=== PATIENT | female | born 1965 | race Caucasian/White ===

== ENCOUNTER 2022-03-13 07:38 | Outpatient (CLI) | payer MEDICAID, SELFPAY ==
--- OUTSIDE RECORDS SUMMARY | 2022-04-10 16:03 | XMS_ITS | Clinical Summary ---
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 CUTTING MACHINE OPERATOR Radicular pain; Pulmonary nodul e, right 03/29/2022 Travel 03/28/2022 Telephone Anamika Amin, Refill Re quest (ATIVAN BAND CUTTING MACHINE OPERATOR ORAL TAB 1MG) 03/27/2022 Telephone Anamika Amin, Form BAND CUTTING MACHINE OPERATOR 03/21/2022 Office Visit Anamika Amin Medicatio n Management BAND CUTTING MACHINE OPERATOR ([facility] ) 03/21/2022 Travel 03/11/2022 Office Visit Anamika Amin Musculosk eletal Problem 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 OPERATOR (Right shoulder ; back pain) 03/11/2022 Telephone Anamika Amin FYI BAND CUTTING MACHINE OPERATOR 03/11/2022 Telephone Phuong Adams DO 03/11/2022 Travel 03/04/2022 Hospital Encounter Nara Parker DO Chronic bilateral low back Hadro, Lopez Gambino PT pain with bilateral sciatica (Prima ry Dx) Discharge Summary - Shellie Bonner S, PT - 03/04/2022 7:00 AM CDT [facility] Physical Therapy Out Patient Discharge Note Patient Name: Michelle Killian Date of Service: 03/04/2022 Start of Service: 12/18/21 Visit Count: Visit Count: 3 PT MEDICAL/TREATMENT DIAGNOS IS Osteoarthritis, localized, s houlder, right ICD-10 M19.011 Referring MD/Provider: Arend t [...] ea leg?Hook Lying Ball rol up ? [place]? HEP [id number]? Home Exercise Program: very basic LB mobility ex Pt was educated in and under stands their [facility]. 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 - [...] k again Friday 01/19) 01/17/2022 Telephone Nara Parker, Results 01/17/2022 Travel 01/16/2022 Telephone Anamika Amin [...] Family History Medical History Relation Name Comments [facility] Brother Mike Heart Disease Father age 57 MD Cancer-breast Maternal Aunt Cancer-breast Maternal Grandmother Hypertension Mother Other Mother brain aneurysm Cancer-breast Paternal Aunt [facility] Sister 1 Sharon [facility] Sister 2 Juliette Relation Name [...] in contact with No / Unsu re 04/05/2022 9:43 AM CDT someone who was confirmed or suspected to have Coronavirus/COVID-19? Obstetrics History Para Term AB IAB SAB Ectopic Multiple Living Live Births 3 2 2 1 2 2 Date Outcome GA Total Labor/2nd/3rd Weight Sex Delivery Anes PTL Soraya A 1 A5 Name Clin Labor 1984 Term Vag-Force Sophie ps ng Delivery Location: [place], [place] 1985 AB Delivery Location: [place], [place] 1988 Term Living Delivery Location: [place] Last Filed Vital Signs Vital Sign Reading Time Taken Comments Blood Pressure 118/52 04/05/2022 10:21 AM CDT Pulse 76 04/05/2022 10:21 AM CDT Temperature 36.9 ??C (98.5 ??F) 01/15/2022 4:34 PM CDT Respiratory Rate 14 04/05/2022 10:21 AM CDT Oxygen Saturation 97% 02/04/2022 3:25 PM CDT Inhaled Oxygen Concentration - - Weight 124.3 kg (274 lb) 04/05/2022 10:21 AM CDT Height 165.1 cm (5' 5) 04/05/2022 10:21 AM CDT Body Mass Index 45.6 04/05/2022 10:21 AM CDT Plan of Treatment Upcoming Encounters Date Type Specialty Care Team Description 04/15/2022 Hospital Encounter Stacy Adams, DO [address] [place], [place] [address] (Wo rk) 04/15/2022 Anesthesia Event Schema, Cliff Smith , HOGSHEAD STOCK CLERK [address] [facility], [place] [address] (Wo rk) 04/15/2022 Surgery Jose Roberto Adams, DO COLONOSCOPY [address] [place], [place] [address] (Wo rk) 04/15/2022 Procedure Only Jose Roberto Adams, DO [address] [place], [place] [address] (Wo rk) 04/19/2022 Office Visit Babita Amin, JAIDA [address] [facility], [place] [address] (Wo rk) 04/19/2022 Appointment 04/26/2022 Office Visit Delaney Grimaldo, OD [address] [facility], [place] [address] (Wo rk) 04/26/2022 Office Visit Mir Beltran PA [address] [facility] [address] [place] [address] (Wo rk) Scheduled Procedures Name [...] (ht and wt on same day) for 04/05/2023 04/05/2022, 02/21, age 18+ 02/04/2022, Additional history exists Tetanus booster 09/23/2024 09/23/2014, 09/02/2014, 05/01/2005, Additional history exists Pap test for age 21-65 11/26/2026 11/26/2021, 11/26/2021 Lipids for age 45-75 03/11/2027 03/11/2022, 11/26/2021, 08/02/2021, Additional history exists Hepatitis B series for Diabetes Completed 05/25/1992, 07/1991, 11/12/1991 Tdap Completed 09/02/2014 Procedures Procedure Name Priority Date/Time Associated Comments Diagnosis MR ANGIO HEAD BRAIN Routine 04/05/2022 12:00 AM FH: brain aneu rysm Results for this WO CDT procedure are i n the results section. MR SPINE LUMBAR WO Routine 03/29/2022 9:32 [...] section. from Last 3 Months Results MR ANGIO HEAD BRAIN WO (04/05/2022 12:00 AM CDT) Anatomical Region Laterality Modality HEAD, BRAIN Magnetic Resonance Narrative This result has an attachment that is no t available. Anamika Amin NP MR MR SPINE LUMBAR WO (03/29/2022 9:32 AM [...] s are released immediately into your [facility] record. ??You may view this [...] osseous lesions. Normal conus terminates at L1. [id number]: No spinal canal or neural foraminal narrowing. [...] If you have questions, please contact yo ur health care provider. INDICATION: Low back pain. Radicular pain. COMPARISON: None. TECHNIQUE: Sagittal T1, T2, and STIR sequences. Axi al T1 and T2 weighted sequences. FINDINGS: Normal vertebral body alignment. No frac tures. No vertebral body loss of height. No ligamentous injury. No suspicious osseous lesions. Normal conus terminates at L1. [id number]: No spinal canal or neural foraminal narrowing. [...] 10: 56:22 AM (Electronically Signed) Anamika Amin NP MR MR SHOULDER RIGHT WO (03/29/2022 9:31 [...] report s are released immediately into your [facility] medical record. ??You may view this [...] questions, please contact yo health care provider. HISTORY: Chronic right shoulder [...] note that all CT [facility] at [facility] use dose modulation, iterative reconstruction, and/or weight-based dosing when appropriate to reduce radiation dose to as low as reasonably achievable. Dictated by Shellie Pringle MD @ 03/29/2022 9:32: 47 AM (Electronically Signed) Narrative 03/29/2022 9:32 AM CDT For Patients: ??As a result of the Cures Act, medical imaging exams and procedure report s are released immediately into [facility] record. ??You may view this report [...] please contact yo health care provider. INDICATION: Right pulmonary nodule. [...] note that all CT scans at [facility] use dose modulation, iterative reconstruction, and/or weight-based dosing when appropriate to reduce radiation dose to as low as reasonably achievable. Dictated by Shellie Pringle MD @ 03/29/2022 9:32: 47 AM (Electronically Signed) Anamika Amin BAND CUTTING MACHINE OPERATOR CT (ABNORMAL) LIPID PANEL W REFLEX MEASURED LDL (03/11/2022 3:22 PM T) [facility] Method Time Signature CHOLESTEROL,TOTAL 167 100 - 199 03/11/2022 [place] mg/dL 4:04 PM [facility] TRIGLYCERIDES 234 (H) <150 03/11/2022 [place] mg/dL 4:04 PM [facility] HDL CHOLESTEROL 36 (L) >40 mg/dL 03/11/2022 [place] 4:04 PM [facility] NON-HDL 131 <145 03/11/2022 [place] CHOLESTEROL mg/dl 4:04 PM [facility] CHOL/HDL RATIO 4.64 (H) <4.50 03/11/2022 [place] 4:04 PM [facility] LDL CHOLESTEROL 84 <=130 03/11/2022 [place] mg/dL 4:04 PM [facility] VLDL CHOLESTEROL 47 (H) <=30 03/11/2022 [place] mg/dL 4:04 PM [facility] PROVIDER ORDERED RANDOM 03/11/2022 [place] STATUS 4:04 PM [facility] Specimen Anatomical Collection Method / Collection Time Recei alaina Time (Source) Location / Volume Laterality Blood BLOOD SPECIMEN / Venipuncture / 03/11/2022 3:22 2021 3:25 Unknown Unknown PM CDT PM CDT Anamika Amin NP CHEMISTRY Performing Organization Address City/[facility]/ZIP Code Phon e Number [facility]ORATORY [address] [place] [address] TSH (03/11/2022 3:22 PM CDT) athologist Signature TSH 0.91 0.35 - 4.94 03/13/2022 [facility] uIU/mL 2:54 PM CDT LABORATORY-CENTR AL LABORATORY Specimen Anatomical Collection Method / Collection Time Recei alaina Time (Source) Location / Volume Laterality Blood BLOOD SPECIMEN / Venipuncture / 03/11/2022 3:22 2021 3:25 Unknown Unknown PM CDT PM CDT Narrative [facility] LABORATORY-CENTRAL LABORAT ORY - 03/13/2022 2:54 PM CDT In Adults, TSH values between 5.00 and 10.00 uIU/ml do not necessarily indicate the presence of Hyp othyroidism. Correlation with clinical findings such as presence of goiter and/or Thyroperoxidase (TPO) Antibody ma y be helpful. For more information please refer to ROS 20 ; 291: 228-238. Anamika Amin NP CHEMISTRY Performing Organization Address City/[facility]/ZIP Code Phon e Number [facility] [address] [place] [address] LABORATORY-CENTRAL 2000 LABORATORY HEMOGLOBIN A1C MONITORING (POCT) (03/11/2022 3:22 PM CDT) athologist Signature HEMOGLOBIN A1C 6.0 <=6.4 % 03/11/2022 [facility] MONITORING 3:34 PM CDT [facility] Specimen Anatomical Collection Method / Collection Time Recei alaina Time (Source) Location / Volume Laterality Blood BLOOD SPECIMEN / Venipuncture / 03/11/2022 3:22 2021 3:25 Unknown Unknown PM CDT PM CDT Narrative [facility] - 022 3:34 PM CDT ? (<=6.9%) [...] Anamika Amin NP CHEMISTRY Performing Organization Address City/[facility]/ZIP Code Phon e Number [place] [id number] 21 PATH TISSUE EXAM (02/04/2022 4:43 PM CDT) Component Value Ref Test Analysis Performed At [facility] gist Range Method Time Signature Case Report Pathology Report ?Case: [id number] ? 02/06/2022 [facility] Authorizing Provider: ??Jessica Ham MD ?Collected: ? 02/04/2022 1643 ? 2:01 PM HEALTH Ordering Location: ? [facility] ?? Received: ?02/04/2022 1655 ? CDT [...] Clinical Lipoma 02/06/2022 [facility] Information 2:01 PM [facility] CDT LABORATORY-C [facility] LABORATORY Gross A) Received in formalin, lab [...] discrete foci of hemorrhage or necrosis identified. Credit Review Officer sections are submitted in 8 cassettes. 2:01 PM [facility] CDT LABORATORY-C 02/05/2022 [facility] LABORATORY Microscopic The final diagnosis is based on microscopic examination of appropriate sections of all specimens. 02/06/2022 [facility] Description 2:01 PM [facility] CDT LABORATORY-C Primarily in the subcutis is prominent fatty tissue showing no significant mitotic activity or atypia. In the context of a clinical mass this is compatible with a lipoma. The presence of ??green ink is confirmed on tissue sections. ENTRMT LABORATORY Additional 02/06/2022 [facility] Information Interpreted at [facility], Central Laboratory - [address] [address] 2:01 PM HEALTH CDT LABORATORY-C ENTRAL LABORATORY Specimen Anatomical Collection Method Collection Time Receive d Time (Source) Location / / Volume Laterality Other (Right Non-Blood / 02/04/2022 4:43 PM 4:55 Shoulder) Unknown CDT PM CDT Jessica Mcnally MD PATHOLOGY/CYTOLOGY Performing Organization Address City/State/ZIP Code Phon e Number [employer] [address] [place] [address] LABORATORY-CENTRAL 2000 LABORATORY XR SHOULDER 3 VIEWS [...] s are released immediately into your [facility] medical record. ??You may view this report [...] If you have questions, please contact [facility] health care provider. INDICATION: Strain of the [...] MD @ Jan 17 3:10PM (Electronically Signed) Nara Parker DO GENERAL IMAGING from Last 3 Months Insurance Payer Benefit Plan / Subscriber ID Effective Dates Phone Addre ss Type Group [employer] [place] [id number] 2021-Present [address] [place] [address] [employer] [id number] Through [address] [facility] [address] [address] [place]: [place] [address] (Home) [place] [id number] Michelle Killian Personal/Family Self [address] (Home) [place] [id number] Advance Directives Latest Code Status on File Code Status Date Activated Date Inactivated Comments Full Code 08/06/2021 8:55 PM 08/08/2021 8:46 PM Code Status Discussion: Reviewed Preferences Care Teams Programs Assistant Relationship Specialty Start Date End Date Anamika Amin NP PCP - General Family Practice 07/19/[address] [place] [address] [place] [address]
== END 2022-03-13 07:39 | disposition home or self-care (01) ==
LOC: AMB 04-10 16:02
PROVIDERS: PCP Nurse Practitioner Family; Visit Provider Family Medicine
DX: R06.09 Other forms of dyspnea (principal); R53.1 Weakness
CPT/HCPCS: A0425; A0427

== ENCOUNTER 2022-03-13 08:11 | Emergency (ER) | payer MEDICAID, SELFPAY ==
[2022-03-13] VITALS (8 sets, daily range): BP systolic 101–137; BP diastolic 41–65; PULSE 85–89; RESP 11–24; TEMP 36.2; O2SAT 91–99; BMI 48.9
--- NOTE | 2022-03-13 08:48 | ED.SOB ---
HPI - SOB/Dyspnea General Chief Complaint: Shortness of Breath/Dyspnea Stated Complaint: Shortness of Breath Time Seen by Provider: 03/13/22 08:26 History of Present Illness HPI Narrative: 56-year-old woman presenting to the emergency department with complaint of episode of shortness of breath. 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 She felt at severe tightening in her posterior neck musculature down into her back as well. And just felt like she could not get enough air. Further recollection does admit that she was may be hyperventilating. She does not describe peripheral symptoms. No loss of sensation. No cramping. Subsequently felt rather nauseated. Admittedly much better now though the tightness in her neck neck remains somewhat. Was in usual state of health at onset here. Did not feel a sense of palpitations or rapid heart rate with this episode. Underlying history of diabetes. Rather heavy smoking. History of COPD and asthma. She does note in the past, sounds more remote, was diagnosed with depression and anxiety and has had panic attacks but this did not feel like that. On exam I note that her abdomen is tender in various locations; she notes that this is chronic. No headache. No visual changes. History of back surgeries. Do inquire regarding family history. Her father from an [place] I believe at age 57. Says that father smoked but did not inhale and the last cigarette he had was the day of her wedding. Mother with ?2 brain aneurysmsI believe this is the reason for her . Sister is well with brain aneurysms. Michelle herself is not been screened but it has been discussed. Family history otherwise of breast cancer. Has had breast biopsy for what sounds like fibrocystic breast disease. She does note that can be tender in the left breast/chest area in particular. Related Data Home Medications Medication Instructions Recorded Confirmed amlodipine 10 mg tablet mg 03/13/22 gabapentin 100 mg capsule mg 03/13/22 hydrochlorothiazide 25 mg tablet mg 03/13/22 lisinopril 20 mg tablet mg 03/13/22 lorazepam 1 mg tablet mg 03/13/22 metformin 500 mg tablet mg 03/13/22 omeprazole 40 mg capsule,delayed mg 03/13/22 release Allergies Allergy/AdvReac Type Severity Reaction Status Date / Time No Known Drug Allergies Allergy Verified 03/13/22 08:18 Review of Systems Status of ROS: Reports: 10 or more systems reviewed and unremarkable except as noted in History and below [facility] Social History Smoking Status: Current every day smoker What tobacco products do you use: cigarettes Smoking packs per day: 1.5 Smoking cigarettes per day: 30.0 Years smoked: 42 Smoking pack-years: 63.00 Second hand tobacco smoke exposure: No How often do you have a drink containing alcohol: never How often do you have six or more drinks on one occasion: Never AUDIT-C Alcohol total score: 0 Non-prescribed substance use: denies use service: No Exam Narrative: Exam Narrative: Pleasant. Thoughtful. No distress. Breathing easily. Cranial nerves 2-12 intact. Moving all extremities without difficulty. She is well perfused peripherally. Equal pulses in the upper extremities. There is mild lower extremity dependent edema. Skin is warm and dry - not diaphoretic at this time. Mild follicular inflammation on the lower legs. Oropharynx is moist and hyperemic consistent with nicotine use. Full dentures. Back/lungs clear to auscultation. There is a more recent surgical scar at the right upper back consistent with cystic excision. She is rather sore to palpation of the trapezial and paracervical musculature. Neck though is supple. Abdomen is obese soft. Moderately tender in the left upper abdomen and into the right mid abdomen. Again she reports this is chronic. Cardiovascular with regular rate rhythm. Large chest makes this rather distant. Const: Vital Signs, click to edit/add: Vital Signs - 24 hr 03/13/22 08:20 03/13/22 09:00 03/13/22 09:00 Temperature 97.1 F L Pulse Rate [Right Pulse Oximeter] 86 87 Respiratory Rate 20 12 Blood Pressure [Ri ght Forearm] Blood Pressure [Ri ght Upper Arm] 101/49 L 112/65 Pulse Oximetry 97 96 99 Oxygen Delivery Me thod Room Air Room Air 03/13/22 08:30 03/13/22 09:30 03/13/22 12:00 Temperature Pulse Rate [Right Pulse Oximeter] 87 85 87 Respiratory Rate 11 L 14 16 Blood Pressure [Ri ght Forearm] 136/50 L Blood Pressure [Ri ght Upper Arm] 118/54 L 137/62 136/50 L Pulse Oximetry 95 95 98 Oxygen Delivery Ms thod Room Air Room Air Room Air 03/13/22 10:30 03/13/22 11:00 03/13/22 11:30 Temperature Pulse Rate [Right Pulse Oximeter] 85 89 85 Respiratory Rate 24 Blood Pressure [Ri ght Forearm] 114/41 L 112/50 L 104/49 L Blood Pressure [Ri ght Upper Arm] Pulse Oximetry 91 91 91 Oxygen Delivery Ms thod Room Air Room Air Documenting provider has reviewed patient's vital signs: yes Course Course Hospital Course: To be monitored on color television console monitor and oximetry. Initiating laboratory evaluation. Does not appear to need any interventions at this time. Initial EKG reviewed by me shows normal sinus rhythm rate of 87 without ischemic changes. Reevaluation(s) Reevaluation #1: generally well -- increasing back discomfort improved with positioning in hospital bed Vital Signs Vital signs: Initial Vital Signs Temperature 97.1 F L 03/13/22 08:20 Temperature Source Temporal Artery Scan 03/13/22 08:20 Pulse Rate 86 03/13/22 08:20 Respiratory Rate 20 03/13/22 08:20 Blood Pressure 101/49 L 03/13/22 08:20 Blood Pressure Mean 66 03/13/22 08:20 Blood Pressure Position Sitting 03/13/22 08:20 Pulse Oximetry 97 03/13/22 08:20 Oxygen Delivery Method 03/13/22 08:20 Vital Signs Temperature 97.1 F L 03/13/22 08:20 Pulse Rate 86 03/13/22 08:20 Respiratory Rate 20 03/13/22 08:20 Blood Pressure 101/49 L 03/13/22 08:20 Pulse Oximetry 97 03/13/22 08:20 Oxygen Delivery Method 03/13/22 08:20 Temperature 97.1 F L 03/13/22 08:20 Pulse Rate 87 03/13/22 12:00 Respiratory Rate 16 03/13/22 12:00 Blood Pressure 136/50 L 03/13/22 12:00 Pulse Oximetry 98 03/13/22 12:00 Oxygen Delivery Method 03/13/22 12:00 MDM - SOB/Dyspnea MDM Narrative Medical decision making narrative: Certainly has a number of risk factors for cardiac disease. Not sure what may have caused this initial episode though does sound as though was complicated by panic attack some form. and then exacerbated underlying msk pain. Medical Records Attestation: I reviewed the patient's medical records. Lab Data Attestation: I reviewed the patient's lab results. Labs: Lab Results 03/13/22 03/13/22 03/13/22 Range/Units 08:55 08:55 08:55 WBC 9.96 (4.50-11.00) K/uL RBC 4.58 (4.00-5.20) m/uL Hgb 14.4 (12.0-16.0) gm/dL Hct 43.1 (33.0-51.0) % MCV 94 (80-100) fL MCH 31 (26-34) pg MCHC 33 (32-36) gm/dL RDW Coeff of Silvestre 14.0 (11.5-15.5) % Plt Count 206 (140-440) K/uL Neut % (Auto) 81.3 H (42.0-72.0) % Lymph % (Auto) 11.1 L (20-44) % Johnston % (Auto) 5.8 (0.0-11.0) % Eos % (Auto) 0.7 (0.0-7.0) % Baso % (Auto) 0.5 (0.0-3.0) % Neut # (Auto) 8.10 H (1.7-7.0) K/uL Lymph # (Auto) 1.10 (0.90-2.90) K/uL Johnston # (Auto) 0.60 (0.00-0.90) K/UL Eos # (Auto) 0.07 (0.00-0.50) K/uL Baso # (Auto) 0.05 (0.00-0.30) K/uL Abs Immat Gran (auto) 0.06 (0.00-0.30) K/uL D-Dimer Quant (PE/DVT) 0.32 (0.00-0.50) ug/ml VBG pH (7.32-7.43) VBG pCO2 (40-50) mmHG VBG pO2 (25-47) mmHG VBG HCO3 (21-28) mmol/L Sodium 137 (135-149) mmol/L Potassium 4.2 (3.6-5.1) mmol/L Chloride 100 (96-114) mmol/L Carbon Dioxide 29 (20-32) mmol/L BUN 26 (7-30) mg/dL Creatinine 0.8 (0.5-1.5) mg/dL Estimated Creat Clear 69.42 Estimated GFR 88 ml/min Glucose 158 H (60-115) mg/dL Calcium 9.5 (8.4-10.6) mg/dL Total Bilirubin (0.1-1.5) mg/dL Direct Bilirubin (0.0-0.5) mg/dL AST (12-35) U/L ALT (4-35) U/L Alkaline Phosphatase (40-150) U/L Troponin I (0.01-0.04) ng/mL C-Reactive Protein 2.0 H (0.5-1.0) mg/dL NT-Pro-B Natriuret Pep (0-125) PG/mL Total Protein (6.0-8.3) g/dL Albumin (3.3-5.0) g/dL SARS-CoV-2 (PCR) (Negative) POC Troponin I (0.01-0.04) ng/ml 03/13/22 03/13/22 03/13/22 Range/Units 08:55 08:55 08:55 WBC (4.50-11.00) K/uL RBC (4.00-5.20) m/uL Hgb (12.0-16.0) gm/dL Hct (33.0-51.0) % MCV (80-100) fL MCH (26-34) pg MCHC (32-36) gm/dL RDW Coeff of Silvestre (11.5-15.5) % Plt Count (140-440) K/uL Neut % (Auto) (42.0-72.0) % Lymph % (Auto) (20-44) % Johnston % (Auto) (0.0-11.0) % Eos % (Auto) (0.0-7.0) % Baso % (Auto) (0.0-3.0) % Neut # (Auto) (1.7-7.0) K/uL Lymph # (Auto) (0.90-2.90) K/uL Johnston # (Auto) (0.00-0.90) K/UL Eos # (Auto) (0.00-0.50) K/uL Baso # (Auto) (0.00-0.30) K/uL Abs Immat Gran (auto) (0.00-0.30) K/uL D-Dimer Quant (PE/DVT) (0.00-0.50) ug/ml VBG pH 7.379 (7.32-7.43) VBG pCO2 52 H (40-50) mmHG VBG pO2 25.4 (25-47) mmHG VBG HCO3 31 H (21-28) mmol/L Sodium (135-149) mmol/L Potassium (3.6-5.1) mmol/L Chloride (96-114) mmol/L Carbon Dioxide (20-32) mmol/L BUN (7-30) mg/dL Creatinine (0.5-1.5) mg/dL Estimated Creat Clear Estimated GFR ml/min Glucose (60-115) mg/dL Calcium (8.4-10.6) mg/dL Total Bilirubin 0.6 (0.1-1.5) mg/dL Direct Bilirubin 0.3 (0.0-0.5) mg/dL AST 19 (12-35) U/L ALT 20 (4-35) U/L Alkaline Phosphatase 76 (40-150) U/L Troponin I < 0.01 L (0.01-0.04) ng/mL C-Reactive Protein (0.5-1.0) mg/dL NT-Pro-B Natriuret Pep 163 H (0-125) PG/mL Total Protein 6.5 (6.0-8.3) g/dL Albumin 3.8 (3.3-5.0) g/dL SARS-CoV-2 (PCR) (Negative) POC Troponin I 0.00 L (0.01-0.04) ng/ml 03/13/22 03/13/22 Range/Units 09:05 11:10 WBC (4.50-11.00) K/uL RBC (4.00-5.20) m/uL Hgb (12.0-16.0) gm/dL Hct (33.0-51.0) % MCV (80-100) fL MCH (26-34) pg MCHC (32-36) gm/dL RDW Coeff of Silvestre (11.5-15.5) % Plt Count (140-440) K/uL Neut % (Auto) (42.0-72.0) % Lymph % (Auto) (20-44) % Johnston % (Auto) (0.0-11.0) % Eos % (Auto) (0.0-7.0) % Baso % (Auto) (0.0-3.0) % Neut # (Auto) (1.7-7.0) K/uL Lymph # (Auto) (0.90-2.90) K/uL Johnston # (Auto) (0.00-0.90) K/UL Eos # (Auto) (0.00-0.50) K/uL Baso # (Auto) (0.00-0.30) K/uL Abs Immat Gran (auto) (0.00-0.30) K/uL D-Dimer Quant (PE/DVT) (0.00-0.50) ug/ml VBG pH (7.32-7.43) VBG pCO2 (40-50) mmHG VBG pO2 (25-47) mmHG VBG HCO3 (21-28) mmol/L Sodium (135-149) mmol/L Potassium (3.6-5.1) mmol/L Chloride (96-114) mmol/L Carbon Dioxide (20-32) mmol/L BUN (7-30) mg/dL Creatinine (0.5-1.5) mg/dL Estimated Creat Clear Estimated GFR ml/min Glucose (60-115) mg/dL Calcium (8.4-10.6) mg/dL Total Bilirubin (0.1-1.5) mg/dL Direct Bilirubin (0.0-0.5) mg/dL AST (12-35) U/L ALT (4-35) U/L Alkaline Phosphatase (40-150) U/L Troponin I (0.01-0.04) ng/mL C-Reactive Protein (0.5-1.0) mg/dL NT-Pro-B Natriuret Pep (0-125) PG/mL Total Protein (6.0-8.3) g/dL Albumin (3.3-5.0) g/dL SARS-CoV-2 (PCR) Negative SARS-CoV-2 (Negative) POC Troponin I 0.00 L (0.01-0.04) ng/ml Discharge Plan Discharge Clinical Impression: Exacerbation of chronic back pain, Panic attack Patient Disposition: Home, Self-Care Condition: Improved Additional Instructions: Definitely would follow up with your primary care provider to determine next steps with your back; keep that ball rolling. Do not forget to follow up regarding imaging for family history of aneurysms as well. Nice talking with you. Prescriptions: No Action metformin 500 mg tablet Label Comments: TAKE 1 TABLET BY MOUTH TWICE DAILY WITH MEALS - CAN START WITH 1 TABLET IN THE MORNING IF GETTING UPSET STOMACH AND PROGRESS TO 1 TABLET TWI lisinopril 20 mg tablet Label Comments: TAKE ONE TABLET BY MOUTH ONE TIME DAILY omeprazole 40 mg capsule,delayed release(DR/EC) Label Comments: TAKE ONE CAPSULE BY MOUTH ONE TIME DAILY amlodipine 10 mg tablet Label Comments: TAKE ONE TABLET BY MOUTH ONE TIME DAILY hydrochlorothiazide 25 mg tablet Label Comments: TAKE ONE TABLET BY MOUTH ONE TIME DAILY gabapentin 100 mg capsule Label Comments: TAKE ONE CAPSULE BY MOUTH TWICE DAILY NEEDED for pain lorazepam 1 mg tablet Stand Alone Forms: [employer] Info Instructions
--- OUTSIDE RECORDS SUMMARY | 2022-03-13 08:52 | XMS_ITS ---
:1965 Author Care Team Providers Name Role Phone Nette Bailey Primary Care Provider Unavailable Allergies Code Code System Name Reaction Severity Status Onset NKDA ? Medications No Medications Reported Problems None recorded. Procedures None recorded. Results Lab Results Date Name Specimen Result Interpretation Description Value Range Status Address ? 08/01/2021 SARS CoV 2 Nose ? Result negative ? ? [facility] RNA, QL, (nasal Urgent C are SERGEI+probe, passage) Corina bault: Nose [address] , [place] 03/12/2021 SARS CoV 2 Nose Normal Sars not not Final Qu est RNA (nasal Cov 2 detected detected Diagno stics (COVID-19), passage) RNA - W amy Shepard , brake liner-PCR, Lab: [id number], Specimen [place] 02/27/2021 SARS CoV 2 Nose ? Result negative ? ? [facility] RNA, QL, (nasal Urgent C are SERGEI+probe, passage) Corina bault: Nose [address] , [place] Past Encounters 08/01/2021 Exposure to SARS-CoV-2 Brennon Marti PA: [address], [address], [place] [address], Ph. 03/12/2021 Exposure to SARS-CoV-2; Viral Syndrome SKYLER LopezC: [address], [place] [address], Ph. 02/27/2021 Exposure to SARS-CoV-2; Acute Upper Resp iratory Infection; Sore Throat Symptom COLTON Stevens: [address], [address], [place] [address], Ph. Social History None recorded. Vaccine List Vaccine Type COVID-19, mRNA, LNP-S, PF, 30 mcg/0.3 mL dose (AOL) 02/01/2021 02/22/2021 polio, unspecified formulation 12/10/1971 08/14/1976 Td (adult), adsorbed 08/14/1976 Plan of Care Patient Instructions Discussed rapid covid results with margaux ent. Patient appears well, no immediate concerns. Patient understands and agrees with treatment plan and instructions. Symptom management discussed to continue OT C cough/cold medications as needed. Medi cation side effects discussed. Discussed risks? benefits? alternatives? side effects of treatment. If symptoms progress or worsen, patient sh ould proceed to the emergency room immed iately. All questions answered. Please consult our office promptly if yo u develop any of the following symptoms: 1. A fever of at least 101?F or 38.4?C 2. Throat pain that is severe or does no t start to improve within 5 to 7 days Call for an ambulance or go to the emerg ency room if you: 1. Have trouble breathing 2. Cannot control your saliva (drooling) due to difficulty swallowing 3. Have swelling of the neck or tongue 4. Cannot move your neck or have trouble opening your mouth Reminders Provider Appointments None recorded. ? ? Lab None recorded. ? ? Referral None recorded. ? ? Procedures None recorded. ? ? Surgeries None recorded. ? ? Imaging None recorded. ? ? Vitals 03/12/2021 08:00[facility] Blood Pressure 178/80 mm[Hg] 02/27/2021 01:50PM [facility] Blood Pressure 118/68 mm[Hg]
--- OUTSIDE RECORDS SUMMARY | 2022-03-13 08:52 | XMS_ITS | Clinical Summary ---
:1965 Author Organization [employer] [facility] [place] [address] Care Team Providers Name Role Phone Anamika Amin NP Primary Care Provider Allergies No known active allergies Medications Medication Sig Dispensed Refills Start End Date Status Date acetaminophen (TYLENOL) Take 650 mg by 0 Active 325 mg tablet mouth every 4 hours if needed for Pain. Max acetaminophen dose: 4000mg in 24 hrs. tiotropium bromide Inhale 2 Puffs by 4 g 0 Active (Spiriva Respimat) 2.5 mouth once daily. 2 mcg/actuation mist for inhalation nicotine 21 mg/24 hr Apply 1 Patch on 14 Patch 3 Active (NICODERM; HABITROL) 21 dry, clean, 2 mg/24 hr hairless skin patchIndications: once daily. Cigarette nicotine dependence without complication metFORMIN (GLUCOPHAGE) Take 1 Tablet 180 Tablet 3 Active 500 mg (500 mg) by mouth 2 tabletIndications: Type 2 times daily 2 diabetes mellitus with meals. Can without complication, start with 1 pill without long-term daily in the AM current use of insulin if you are (HC) getting upset stomach and then progress to one pill in the morning and one pill at night once you are feeling okay taking it. albuterol HFA (Ventolin Inhale 2 Puffs by 8.5 g 5 09/25/19 2 Active HFA) 90 mcg/actuation mouth every 4 2 inhalerIndications: COPD hours if needed exacerbation (HC) for Shortness of Breath 1st choice or Wheezing 1st choice. amLODIPine (NORVASC) 10 Take 1 Tablet (10 90 Tablet 1 09/25/19 2 Active mg tabletIndications: mg) by mouth once 2 HTN (hypertension) daily. hydroCHLOROthiazide Take 1 Tablet (25 90 Tablet 1 Active (HCTZ) 25 mg mg) by mouth once 2 tabletIndications: HTN daily. (hypertension) lisinopriL (PRINIVIL; Take 1 Tablet (20 90 Tablet 1 Active ZESTRIL) 20 mg mg) by mouth once 2 tabletIndications: HTN daily. (hypertension) CPAPIndications: VIKTORIA CPAP machine for 1 Each Active (obstructive sleep home use at 2 apnea) pressure 17 cmw, full face mask x1/3month with a full face cushion x1/mo omeprazole (PRILOSEC) 40 Take 1 Capsule 90 Capsule 1 Active mg Delayed-Release (40 mg) by mouth 2 capsuleIndications: once daily. Abdominal pain, unspecified abdominal location ciclopirox solution Apply topically 6.6 mL 5 Active (Penlac) 8 % to affected 2 solutionIndications: area(s) at Fungal nail infection bedtime. gabapentin (NEURONTIN) Take 1 tab twice 60 Capsule 1 Active 100 mg daily as needed 2 capsuleIndications: for pain Lumbar radicular pain HYDROcodone-acetaminophe Take 1 Tablet by 15 Tablet 0 02/05/20 2 Active n ([place]) 5-325 mg per mouth every 6 2 tabletIndications: hours if needed Lipoma of torso for Pain. Max acetaminophen dose: 4000 mg in 24 hrs. LORazepam (ATIVAN) 1 mg Take 1 tab 30 min 1 Tablet 0 03/11/20 2 Active tabletIndications: prior to MRI 2 Claustrophobia polyethylene Take 4,000 mL by 4000 mL 0 03/11/20 glycol-electrolyte mouth one time 2 22 (Golytely) for 1 dose. 236-22.74-6.74 -5.86 gram suspensionIndications: Screening for colon cancer Active Problems Problem Noted Date Pap smear for cervical cancer screening 11/21/2021 Overview: 11/2021 NIL/HPV negative Plan: Pap/HPV due 11/2026 VIKTORIA 10/14/2021 AHI- 117 11/01/2021 Pulmonary nodule, right 09/24/2021 Type 2 diabetes mellitus without complication, without long-term current 08/15/2021 use of insulin Polymyalgia rheumatica 08/13/2021 Class 3 severe obesity with body mass index (BMI) of 5 0.0 to 59.9 in adult 08/07/2021 COPD with acute exacerbation 08/06/2021 Acute respiratory failure with hypoxia 08/06/2021 UTI (urinary tract infection) 08/06/2021 Chronic low back pain 08/06/2021 Mammogram declined 02/18/2018 Overview: 02/16/18 Colonoscopy refused 02/18/2018 Overview: 02/16/18 Tobacco abuse 02/18/2018 Elevated blood sugar 02/05/2018 Osteoarthritis of lower back 01/30/2018 HTN (hypertension) 10/19/2015 Obstructive sleep apnea syndrome 10/19/2015 Non morbid obesity due to excess calories 10/19/2015 Encounters Date Type Specialty Care Team Description 03/11/2022 Office Visit Anamika Amin Musculosk eletal Problem 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 ; 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) 03/11/2022 Telephone Anamika Amin FYI STITCH CLEANER 03/11/2022 Telephone Phuong Adams DO 03/11/2022 Travel 03/04/2022 Hospital Encounter Nara Parker DO Chronic bilateral low back Lopez Bonner, PT pain with bilateral sciatica (Prima ry Dx) Discharge Summary - Shellie Bonner, PT - 03/04/2022 7:00 AM CDT [facility] Physical Therapy Out Patient Discharge Note Patient Name: Michelle Killian Date of Service: 03/04/2022 Start of Service: 12/18/21 Visit Count: Visit Count: 3 PT MEDICAL/TREATMENT DIAGNOS IS Osteoarthritis, localized, s houlder, right ICD-10 M19.011 Referring MD/Provider: Hilda monahan Insurance: Medicaid;UCare;Me dicaid Replacement This 56 y/o female has chron ic LBP that she has had for 20+ years and she had a LB surgery in 2001. She presents with right late ral thigh tingling and aching across her LB DISCHARGE NOTE Start of Service: 12/18/21 End date of service: 2 Therapy Completed: Yes Final Outcome Tool: Tool Com plete: Final outcome tool completed Discharge Education: Patient education was given regarding home exercise program progression, maintenance of current status, and when to follow up with primary care provider. Therapist Assessment Pt continues to have bilater al LB and leg pain that has not been changed with flexion bias exercises. She has had back surgery and has dealt with chronic LB pain. If an MRI does not show a surgical situ ation she may benefit form candace flores to the MedEx program at the back care center. With respect to her shoulder she may benefit from a sub acromial space cortisone injection to decrease the inflammation. She is D/c from PT due to ou r inability to change her sx. Recommend D/C from skilled p hysical therapy with verbal cueing to address deficits and return patient to highest level of function. Therapy interventions being performed are medically necessary, are dasia ng delivered according to ac cepted standards of medical practice, and require the skills of a therapist to perform the services. SUBJECTIVE SUBJECTIVE Patient Symptoms : Same Change in Functional Status: No Comments : still quite sore Acute Pain Intensity (0-10): 8 Location: Right;Lower;Back;T high Quality: Ache;Pain Compliance with home exercis e program: Yes OBJECTIVE OUTCOME MEASURES (last 48 ho urs) Outcome Measures Row Name 03/04/22 0737 02/21 08/14 0741 PT FOTO GROUP PT Initial FOTO FS 48 63 PT Predicted FOTO FS Change 3 0 PT Predicted FOTO FS Goal 5 1 63 PT Current FOTO FS 58 57 INTERVENTION Today's Interventions See flow chart for today's i ntervention ?DATE: 12/18/21 01/21/22?? 03/04/22?? TREATMENT # 1/4 2/4?? 3/4?? EXERCISES: ? Sit Lumbar Flex. 5 5x 10 1 0x?? 10 10x?DK to Chest ? SK to Chest 5x ea 5 10x?? 5 10x ea leg?? P Pelvic Tilt 3x ??5 10x 5 12x?? L Trunk Rotation ??R/L 5 1x 5 ?? 5x 5 10x?? Ball Abdominal ?? 5 10x No lift? Ball Abd 3 ways ? Transverse Ab. ? Bug ?? 15x ea leg?Hook Lying Ball rol up ? Emm[place]? HEP [id number]? Home Exercise Program: very basic LB mobility ex Pt was educated in and under stands their HEP. Level of Function: Pt is in dependent in their ADL's but has not returned to their previous level of function GOALS Patient goal: decrease her L BP in the next 8 weeks Patient will demonstrate: 30 % increase in Lumbar flexion in order to: tie her shoes in (weeks): 5 weeks Goal Status: Not met Patient will demonstrate: mi nimal pain in the right sciatic notch in order to: be able to do house hold ADL's easier with less pain in (weeks): 10 weeks Goal Status: Not met PLAN D/C to HEP 03/04/2022 Travel 02/06/2022 Telephone Jessica Mcnally MD Resu lts (pathology) 02/04/2022 Office Visit Jessica Mcnally MD Cons ult (Lipoma right side of back referred b y Dr. Parker) 02/04/2022 Hospital Encounter Nara Parker DO Arthritis of right shoulder region (Prim justice Dx); Lopez Bonner PT Strain of right trapezius muscle, initial encounter Discharge Summary - Shellie Bonner, PT - 02/04/2022 7:00 AM CDT DISCHARGE NOTE Start of Service: 02/04/22 End date of service: 2 Therapy Completed: Yes Final Outcome Tool: Tool Com plete: Final outcome tool completed Discharge Education: Patient education was given regarding home exercise program progression, maintenance of current status, and when to follow up with primary care provider. PT Initial FOTO FS: 47 PT Current FOTO FS: 47 PT Predicted FOTO FS Change: 16 (IA) PT Predictive FOTO FS: (not recorded) Pt continues with chronic ri ght shoulder pain and may need a cortisone injection to quiet the shoulder down and then pt could progress with exercises. 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 - has been ongoing for 6 months - worsening more so and then x2 days ago could barely move it so went to UC - did give her methocarbamol - has helped so me but is unsure of a big difference - took a few days off of work - supposed to wor k again Friday 01/19) 01/17/2022 Telephone Nara Parker DO Results 01/17/2022 Travel 01/16/2022 Telephone Anamika Amin NP Appoin tment Request (Appt request - urgen t care follow up ) 01/15/2022 Office Visit Mike Simmons PA Shou lder Pain/problem (right) 01/15/2022 Travel 12/31/2021 Office Visit Yonny Polanco MD Sleep Follow -up (CPAP & oximetry resuls ) 12/31/2021 Travel 12/26/2021 Telephone Anamika Amin NP Pap Pl an (Pap plan) 12/18/2021 Hospital Encounter Teetee Amin NP Lumbar radicular pain Lopez Bonner, PT 12/18/2021 Travel from Last 3 Months Immunizations Name Administration Dates Next Due Hepatitis B (Adult) 05/25/1992, 12/23/1991, 11/12/1991 Influenza Virus, Unspecified 04/22/2014, 05/28/2013 Influenza, IIV3 (Age >=3 years) 04/22/2014, 05/28/2013 Pneumococcal conj 13-Valent (Prevnar 13) 09/23/2014 Polio Virus, Unspecified 08/14/1976, 12/10/1971 Td (Age >=7 Years) 09/23/2014, 05/01/2005, 08/14/1976 Tdap 09/02/2014 Family History Medical History Relation Name Comments Good Health Brother Mike Heart Disease Father age 57 [place] Cancer-breast Maternal Aunt Cancer-breast Maternal Grandmother Hypertension Mother Other Mother brain aneurysm Cancer-breast Paternal Aunt Good Health Sister 1 Sharon [facility] Sister 2 Juliette Relation Name Status Comments Brother Mike Father Maternal Aunt 2 Aunts Maternal Grandmother Mother Alive Paternal Aunt Sister 1 Sharon Sister 2 Juliette Social History Tobacco Use Types Packs/Day Years Used Date Current Every Day Smoker Cigarettes 1.5 Smokeless Tobacco: Never Used Tobacco Cessation: Ready to Quit: Yes; C ounseling Given: Yes Comments: when she is ready Alcohol Use Standard Drinks/Week Comments No 0 (1 standard drink = 0.6 oz pure alcoho l) Sex Assigned at Date Recorded Not on file COVID-19 Exposure Response Date Recorded In the last 10 days, have you been in contact with No / Unsu re 03/11/2022 1:56 PM CDT someone who was confirmed or suspected to have Coronavirus/COVID-19? Obstetrics History Para Term AB IAB SAB Ectopic Multiple Living Live Births 2 2 Date Outcome GA Total Labor/2nd/3rd Weight Sex Delivery Anes PTL Soraya A 1 A5 Name Clin Labor Last Filed Vital Signs Vital Sign Reading Time Taken Comments Blood Pressure 136/58 03/11/2022 2:30 PM CDT Pulse 96 03/11/2022 2:30 PM CDT Temperature 36.9 ??C (98.5 ??F) 01/15/2022 4:34 PM CDT Respiratory Rate 18 03/11/2022 2:30 PM CDT Oxygen Saturation 97% 02/04/2022 3:25 PM CDT Inhaled Oxygen Concentration - - Weight 129.3 kg (285 lb) 03/11/2022 2:30 PM CDT Height 165.1 cm (5' 5) 03/11/2022 2:30 PM CDT Body Mass Index 47.43 03/11/2022 2:30 PM CDT Plan of Treatment Upcoming Encounters Date Type Specialty Care Team Description 03/29/2022 Appointment 03/29/2022 Appointment 04/15/2022 Hospital Encounter Stacy Adams, DO [address] [place], [place] [address] (Wo rk) 04/15/2022 Surgery Tiburcio Adamsmarie jahaira Hurley, DO [facility] [address] [facility] [place] [address] (Wo rk) 04/15/2022 Procedure Only Jose Roberto Adams, DO [address] [place], [place] [address] (Wo rk) Scheduled Procedures Name Priority Associated Diagnoses Date/Time COLONOSCOPY 04/15/2022 12:30 PM CDT Health Maintenance Due Date Last Done Comments Hepatitis C screening for age 0511/04/1985 18-79 Colonoscopy through age 75 11/04/2012 Pneumococcal series for age 19-64 09/24/2015 09/23/2014 (2 - PPSV23 or PCV20) Zoster (shingles) series for age 0511/04/2017 50+ (1 of 2) Mammogram for age 45-75 02/13/2019 02/13/2018 COVID-19 vaccine series (3 - 07/25/2021 02/22/2021, 021 Booster for Pfizer series) Influenza for age 50-64 02/21/2022 04/22/2014, 04/22/2014, 05/28/2013, Additional history exists Depression screening for age 12+ 11/26/2022 11/26/2021, , 08/03/2021, Additional history exists BMI (ht and wt on same day) for 03/11/2023 03/11/2022, 01/21, age 18+ 11/26/2021, Additional history exists Tetanus booster 09/23/2024 09/23/2014, 09/02/2014, 05/01/2005, Additional history exists Pap test for age 21-65 11/26/2026 11/26/2021, 11/26/2021 Lipids for age 45-75 03/11/2027 03/11/2022, 11/26/2021, 08/02/2021, Additional history exists Hepatitis B series for Diabetes Completed 05/25/1992, 07/1991, 11/12/1991 Tdap Completed 09/02/2014 Procedures Procedure Name Priority Date/Time Associated Comments Diagnosis LIPID PANEL W REFLEX Routine 03/11/2022 3:22 PM Type 2 diabete s Results for this MEASURED LDL CDT mellitus without procedure a re in complication, the results without long-term section. current use of insulin (HC) HEMOGLOBIN A1C Routine 03/11/2022 3:22 PM Type 2 diabetes Resu lts for this CDT mellitus without procedure a re in complication, the results without long-term section. current use of insulin (HC) PATH TISSUE EXAM Routine 02/04/2022 4:43 PM Lipoma of torso Re sults for this CDT procedure are i n the results section. XR SHOULDER 3 VIEWS STAT 01/17/2022 3:00 PM Strain of right Results for this RIGHT CDT trapezius muscle, procedure are in initial encounter the result s section. SCAN-DIAGNOSTIC 12/31/2021 12:00 AM Resul ts for this REPORT CDT procedure are i n the results section. SCAN-DIAGNOSTIC 12/31/2021 12:00 AM Resul ts for this REPORT CDT procedure are i n the results section. from Last 3 Months Results (ABNORMAL) LIPID PANEL W REFLEX MEASURED LDL (03/11/2022 3:22 PM CDT) [facility] gist Method Time Signature CHOLESTEROL,TOTAL 167 100 - 199 03/11/2022 [place] mg/dL 4:04 PM [facility] TRIGLYCERIDES 234 (H) <150 03/11/2022 [place] mg/dL 4:04 PM [facility] HDL CHOLESTEROL 36 (L) >40 mg/dL 03/11/2022 [place] 4:04 PM [facility] NON-HDL 131 <145 03/11/2022 [place] CHOLESTEROL mg/dl 4:04 PM [facility] CHOL/HDL RATIO 4.64 (H) <4.50 03/11/2022 [place] 4:04 PM T [facility] LDL CHOLESTEROL 84 <=130 03/11/2022 [place] mg/dL 4:04 PM [facility] VLDL CHOLESTEROL 47 (H) <=30 03/11/2022 [place] mg/dL 4:04 PM [facility] PROVIDER ORDERED RANDOM 03/11/2022 [place] STATUS 4:04 PM T [facility] Specimen Anatomical Collection Method / Collection Time Recei alaina Time (Source) Location / Volume Laterality Blood BLOOD SPECIMEN / Venipuncture / 03/11/2022 3:22 2021 3:25 Unknown Unknown PM CDT PM CDT Anamika Amin NP CHEMISTRY Performing Organization Address City/State/ZIP Code Phon e Number [facility] [address] [place] [address] HEMOGLOBIN A1C MONITORING (POCT) (03/11/2022 3:22 PM CDT) P athologist Signature HEMOGLOBIN A1C 6.0 <=6.4 % 03/11/2022 [facility] MONITORING 3:34 PM CDT [facility] Specimen Anatomical Collection Method / Collection Time Recei alaina Time (Source) Location / Volume Laterality Blood BLOOD SPECIMEN / Venipuncture / 03/11/2022 3:22 2021 3:25 Unknown Unknown PM CDT PM CDT Narrative [facility] - 022 3:34 PM CDT ? (<=6.9%) ? Indicates good control ? (7.0% to 7.9%) ? Indicates fa ir control ? (>=8.0%) ? Indicates poor control ?? NOTE: ??These thresholds are guideli gia and ?individual targets may va ry. Falsely low levels may be seen with: Recent Transfusion, Recent Significant B lood Loss, Hemolytic Diseases, or Falsely elevated levels may be seen with : Untreated Anemias, Splenectomy ? Anamika Amin NP CHEMISTRY Performing Organization Address City/[facility]/ZIP Code Phon e Number [facility] [address] [facility] [place] [address] PATH TISSUE EXAM (02/04/2022 4:43 PM CDT) Component Value Ref Test Analysis Performed At [facility] gist Range Method Time Signature Case Report Pathology Report ?Case: [id number] ? 02/06/2022 [facility] Authorizing Provider: ??Jessica Ham MD ?Collected: ? 02/04/2022 1643 ? 2:01 PM HEALTH Ordering Location: ? [facility] ?? Received: ?02/04/2022 1655 ? CDT LABOR ATORY-C ? Clinic ? ENTRAL Pathologist: ? Catherine Fairchild MD ? LABORATORY Specimen: ?Right Shoulde r ? Final SOFT TISSUE, RIGHT SHOULDER, EXCISION: 0 02/06/2022 [facility] Electronically Diagnosis 1. Lipoma 2:01 PM HEALTH signed by 2. Negative for malignancy CDT LAB ORATORY-C Catherine Fairchild MD on LABORATORY 02/06/2022 at 2:01 PM Clinical Lipoma 02/06/2022 [facility] Information 2:01 PM HEALTH CDT LABORATORY-C [facility] Gross A) Received in formalin, lab eled with the patient's name and lipoma right shoulder, is a 7.5 x 5.3 x 4.0 cm intact portion of adipose tissue that appears to be encapsulated by a thin fibrous membrane. 022 [facility] Description The specimen is inked green and sectioned. The cut surfaces reveal homogeneous yellow-irwin cut surfaces with no discrete foci of hemorrhage or necrosis identified. Extension Service Supervisor sections are submitted in 8 cassettes. 2:01 PM HEALTH CDT LABORATORY-C LH 02/05/2022 [facility] Microscopic The final diagnosis is based on microscopic examination of appropriate sections of all specimens. 02/06/2022 [place] [facility] Description 2:01 PM HEALTH CDT LABORATORY-C Primarily in the subcutis is prominent fatty tissue showing no significant mitotic activity or atypia. In the context of a clinical mass this is compatible with a lipoma. The presence of ??green ink is confirmed on tissue sections. [facility] Additional 02/06/2022 [facility] Information Interpreted at [facility], Central Laboratory - [address] [place] [address] 2:01 PM [facility] CDT LABORATORY-C [facility] Specimen Anatomical Collection Method Collection Time Receive d Time (Source) Location / / Volume Laterality Other (Right Non-Blood / 02/04/2022 4:43 PM 4:55 Shoulder) Unknown CDT PM CDT Jessica Mcnally MD PATHOLOGY/CYTOLOGY Performing Organization Address City/State/ZIP Code Phon e Number [facility] [address] [place] [address] LABORATORY-CENTRAL 2000 LABORATORY XR SHOULDER 3 VIEWS RIGHT (01/17/2022 3:00 PM CDT) Anatomical Region Laterality Modality SHOULDERS, SHOULDER R Computed Radiograp hy Specimen (Source) Anatomical Collection Method Collection Time Re ceived Time Location / / Volume Laterality 01/17/2022 3:10 PM CDT Impressions 01/17/2022 3:10 PM CDT Degenerative arthritis of the right shoulder. No fracture or dislocation. Calcification along the supraspinatus tendon. Dictated by Lopez Faith MD @ Jan 17 ??3:10PM (Electronically Signed) ?? Narrative 01/17/2022 3:10 PM CDT For Patients: ??As a result of the Cures Act, medical imaging exams and procedure report s are released immediately into your [facility] medical record. ??You may view this report before your referring provider. ??If you have questions, please contact your health care provider. INDICATION: Strain of the right trapezius muscle. TECHNIQUE: Three views of the right shoulder. FINDINGS: Degenerative narrowing and spurring of t he AC joint. Narrowing and spurring of the glenohumeral joint. Calcification in the expected location of the supraspinatus tendon. This may reflect calcific tendinitis. Procedure Note Lopez Faith MD - 01/17/2022Formatti ng of this note might be different from the original. For Patients: As a result of the Cures Act, medical imaging exams and procedure reports are released immediately into your electronic medical record. You may view this report before your referring provider. If you have questions, please contact the [facility] health care provider. INDICATION: Strain of the right trapezius muscle. TECHNIQUE: Three views of the right shoulder. FINDINGS: Degenerative narrowing and spurring of t he AC joint. Narrowing and spurring of the glenohumeral joint. Calcification in the expected location of the supraspinatus tendon. This may reflect calcific tendinitis. IMPRESSION: Degenerative arthritis of the right shou lder. No fracture or dislocation. Calcification along the supraspinatus tendon. Dictated by Lopez Faith MD @ Jan 17 3:10PM (Electronically Signed) Adei Elena DO GENERAL IMAGING SCAN-DIAGNOSTIC REPORT (12/31/2021 12:00 AM CDT) Narrative This result has an attachment that is no t available. Scanner OTHER SCAN-DIAGNOSTIC REPORT (12/31/2021 12:00 AM CDT) Narrative This result has an attachment that is no t available. Scanner OTHER from Last 3 Months Insurance Payer Benefit Plan / Subscriber ID Effective Dates Phone Addre ss Type Group [employer] [place] [place] [id number] 2021-Present [address] [place] [address] [employer] [id number] Through [address] [address] ATTN: [place] [address] (Home) [place] [id number] Mraia DMichelle Coyle Personal/Family Self [address] (Home) [place] [id number] Advance Directives Latest Code Status on File Code Status Date Activated Date Inactivated Comments Full Code 08/06/2021 8:55 PM 08/08/2021 8:46 PM Code Status Discussion: Reviewed Preferences Care Teams Blood Splatter Analyst Relationship Specialty Start Date End Date Anamika Amin NP PCP - General Family Practice 07/19/[address] [place] [address] [place] [id number]
[2022-03-13 09:02] LABS: HCO3 VBG 31 mmol/L (21-28); PCO2 VBG 52 mmHG (40-50); PO2 VBG 25.4 mmHG (25-47); pH VBG 7.379 (7.32-7.43)
[2022-03-13 09:09] LABS: Hematocrit 43.1 % (33.0-51.0); Hemoglobin* 14.4 gm/dL (12.0-16.0); Mean Corpuscular HGB Conc 33 gm/dL (32-36); Mean Corpuscular Hemoglobin 31 pg (26-34); Mean Corpuscular Volume 94 fL (80-100); Neutrophils Percent Auto 81.3 % (42.0-72.0); Platelet Count* 206 K/uL (140-440); Red Blood Count 4.58 m/uL (4.00-5.20); White Blood Count* 9.96 K/uL (4.50-11.00)
[2022-03-13 09:10] LABS: Basophils Absolute Auto 0.05 K/uL (0.00-0.30); Basophils Percent Auto 0.5 % (0.0-3.0); Eosinophils Absolute Auto 0.07 K/uL (0.00-0.50); Eosinophils Percent Auto 0.7 % (0.0-7.0); Immature Granulocytes Abs Auto 0.06 K/uL (0.00-0.30); Lymphocytes Percent Auto 11.1 % (20-44); Monocytes Percent Auto 5.8 % (0.0-11.0)
[2022-03-13 09:21] LABS: Chloride* 100 mmol/L (96-114); Slide Review Reflex No; Sodium* 137 mmol/L (135-149)
[2022-03-13 09:22] LABS: Albumin* 3.8 g/dL (3.3-5.0); Potassium* 4.2 mmol/L (3.6-5.1)
[2022-03-13 09:24] LABS: Creatinine* 0.8 mg/dL (0.5-1.5); D Dimer Quantitative* 0.32 ug/ml (0.00-0.50); Est. Creatinine Clearance* 69.42; Estimated Glomerular Filt Rate 88 ml/min
[2022-03-13 09:25] LABS: Blood Urea Nitrogen* 26 mg/dL (7-30); Calcium* 9.5 mg/dL (8.4-10.6); Carbon Dioxide* 29 mmol/L (20-32); Glucose* 158 mg/dL (60-115); Total Protein* 6.5 g/dL (6.0-8.3)
[2022-03-13 09:26] LABS: Alanine Aminotransferase* 20 U/L (4-35); Alkaline Phosphatase* 76 U/L (40-150); Aspartate Amino Transferase* 19 U/L (12-35); Bilirubin Direct* 0.3 mg/dL (0.0-0.5); Bilirubin Total* 0.6 mg/dL (0.1-1.5)
[2022-03-13 09:34] LABS: NT Pro B Type NatriureticPept* 163 PG/mL (0-125)
[2022-03-13 09:38] LABS: Troponin I* < 0.01 ng/mL (0.01-0.04)
[2022-03-13 10:01] LABS: SARS PCR* Negative SARS-CoV-2 (Negative)
== END 2022-03-13 12:10 | disposition home or self-care (01) ==
PROVIDERS: Emergency Provider Family Medicine; PCP Nurse Practitioner Family
DX: M54.9 Dorsalgia, unspecified (principal); F41.0 Panic disorder [episodic paroxysmal anxiety]
CPT/HCPCS: 36415; 80048; 80076; 82803; 83880; 84484; 85025; 85379; 86140; 87635; 93005; 94761; 99283; 99284

== ENCOUNTER 2022-04-05 06:56 | Outpatient (CLI) | payer MEDICAID, SELFPAY ==
--- OUTSIDE RECORDS SUMMARY | 2022-04-05 06:59 | XMS_ITS | Clinical Summary ---
:1965 Author Organization [facility] [place] [address] Care Team Providers Name Role Phone Anamika Amin NP Primary Care Provider Allergies No known active allergies Medications Medication Sig Dispensed Refills Start End Status Date Date acetaminophen (TYLENOL) Take 650 mg by 0 Active 325 mg tablet mouth every 4 hours if needed for Pain. Max acetaminophen dose: 4000mg in 24 hrs. tiotropium bromide Inhale 2 Puffs 4 g 0 Active (Spiriva Respimat) 2.5 by mouth once 022 mcg/actuation mist for daily. inhalation nicotine 21 mg/24 hr Apply 1 Patch on 14 Patch 3 Active (NICODERM; HABITROL) 21 dry, clean, 022 mg/24 hr hairless skin patchIndications: once daily. Cigarette nicotine dependence without complication metFORMIN (GLUCOPHAGE) Take 1 Tablet 180 Tablet 3 Active 500 mg (500 mg) by 022 tabletIndications: Type mouth 2 times 2 diabetes mellitus daily with without complication, meals. Can start without long-term with 1 pill current use of insulin daily in the AM (HC) if you are getting upset stomach and then progress to one pill in the morning and one pill at night once you are feeling okay taking it. albuterol HFA (Ventolin Inhale 2 Puffs 8.5 g 5 Active HFA) 90 mcg/actuation by mouth every 4 022 inhalerIndications: hours if needed COPD exacerbation (HC) for Shortness of Breath 1st choice or Wheezing 1st choice. CPAPIndications: VIKTORIA CPAP machine for 1 Each Active (obstructive sleep home use at 022 apnea) pressure 17 cmw, full face mask x1/3month with a full face cushion x1/mo ciclopirox solution Apply topically 6.6 mL 5 Active (Penlac) 8 % to affected 022 solutionIndications: area(s) at Fungal nail infection bedtime. gabapentin (NEURONTIN) Take 1 tab twice 60 Capsule 1 Active 100 mg daily as needed 022 capsuleIndications: for pain Lumbar radicular pain HYDROcodone-acetaminoph Take 1 Tablet by 15 Tablet 0 Active en (Maxbass) 5-325 mg per mouth every 6 022 tabletIndications: hours if needed Lipoma of torso for Pain. Max acetaminophen dose: 4000 mg in 24 hrs. amLODIPine (NORVASC) 10 Take 1 Tablet 90 Tablet 1 Active mg tabletIndications: (10 mg) by mouth 022 HTN (hypertension) once daily. hydroCHLOROthiazide Take 1 Tablet 90 Tablet 1 Active (HCTZ) 25 mg (25 mg) by mouth 022 tabletIndications: HTN once daily. (hypertension) lisinopriL (PRINIVIL; Take 1 Tablet 90 Tablet 1 Active ZESTRIL) 20 mg (20 mg) by mouth 022 tabletIndications: HTN once daily. (hypertension) omeprazole (PRILOSEC) Take 1 Capsule 90 Capsule 1 Active 40 mg Delayed-Release (40 mg) by mouth 022 capsuleIndications: once daily. Abdominal pain, unspecified abdominal location gemfibroziL (LOPID) 600 Take 1 Tablet 180 Tablet 1 Active mg tabletIndications: (600 mg) by 022 Hypertriglyceridemia mouth two times daily before meals. escitalopram oxalate Take 1/2 tab 90 Tablet 0 Active (LEXAPRO) 20 mg daily for 1 week 022 tabletIndications: then increase to Depression, recurrent 1 tab daily. (HC), Anxiety clonazePAM (KLONOPIN) Take 1 tab daily 15 Tablet 0 Active 0.5 mg as needed for 022 tabletIndications: PTSD panic attack. (post-traumatic stress disorder) amLODIPine (NORVASC) 10 Take 1 Tablet 90 Tablet 1 09/24/2 / Discontinued mg tabletIndications: (10 mg) by mouth 022 2 022 (Reorder HTN (hypertension) once daily. (E-cancel not sent)) hydroCHLOROthiazide Take 1 Tablet 90 Tablet 1 Discontinued (HCTZ) 25 mg (25 mg) by mouth 2021 (Reorder tabletIndications: HTN once daily. (E-cancel not (hypertension) sent) ) lisinopriL (PRINIVIL; Take 1 Tablet 90 Tablet 1 02/22 Discontinued ZESTRIL) 20 mg (20 mg) by mouth 2021 (Reorder tabletIndications: HTN once daily. (E-cancel not (hypertension) sent) ) omeprazole (PRILOSEC) Take 1 Capsule 90 Capsule 1 Discontinued 40 mg Delayed-Release (40 mg) by mouth (Reorder capsuleIndications: once daily. (E-cancel not Abdominal pain, sent )) unspecified abdominal location polyethylene Take 4,000 mL by 4000 mL 0 03/11/ glycol-electrolyte mouth one time 2021 (Golytely) for 1 dose. [id number] -5.86 gram suspensionIndications: Screening for colon cancer LORazepam (ATIVAN) 1 mg Take 1 tab 30 1 Tablet 0 Discontinued tabletIndications: min prior to MRI 2021 (*Med Claustrophobia compl ete/Regim en complete/L evel of care change) Active Problems Problem Noted Date Chronic GERD 03/21/2022 Other fatigue 03/21/2022 Anxiety 03/21/2022 Panic disorder 03/21/2022 Recurrent major depressive disorder 03/21/2022 Obsessive compulsive disorder 03/21/2022 Vitamin D deficiency 03/21/2022 Post traumatic stress disorder 03/21/2022 Abnormal mammogram 03/21/2022 Pap smear for cervical cancer screening 11/21/2021 [...] sugar 02/05/2018 Osteoarthritis of lower back 01/30/2018 Overview: Facet Arthritis, Multi Level Degenerativ e Disc Dease HTN (hypertension) 10/19/2015 Obstructive sleep apnea syndrome 10/19/2015 Non morbid obesity due to excess calories 10/19/2015 Encounters Date Type Specialty Care Team Description 03/29/2022 Hospital Encounter Anamika Amin Chr onic right shoulder pain; WASH WORKER Radicular pain; Pulmonary nodul e, right 03/29/2022 Travel 03/28/2022 Telephone Anamika Amin, Refill Re quest (ATIVAN WASH WORKER ORAL TAB 1MG) 03/27/2022 Telephone Anamika Amin Form WASH WORKER 03/21/2022 Office Visit Anamika Amin Medicatio n Management WASH WORKER (Disc[facility] labs ) 03/21/2022 Travel 03/11/2022 Office Visit Anamika Amin Musculosk eletal Problem WASH WORKER (Right shoulder ; back pain) 03/11/2022 Telephone Anamika Amin FYI WASH WORKER 03/11/2022 Telephone Phuong Adams DO 03/11/2022 Travel 03/04/2022 Hospital Encounter Nara Parker DO Chronic bilateral low back Lopez Bonner PT pain with bilateral sciatica (Prima ry Dx) Discharge Summary - Shellie Bonner PT - 03/04/2022 7:00 AM CDT [facility] Physical Therapy Out Patient Discharge Note Patient Name: Michelle Killian Date of Service: 03/04/2022 Start of Service: 12/18/21 Visit Count: Visit Count: 3 PT MEDICAL/TREATMENT DIAGNOS IS Osteoarthritis, localized, s mark, right ICD-10 M19.011 Referring MD/Provider: Arend t Insurance: Medicaid;UCare;Me dicaid Replacement This 56 y/o [...] surgical situ ation she may benefit form g mark to the MedEx program at the back [...] ea leg?Hook Lying Ball rol up ? [place]? HEP [id number]? 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 - has been ongoing for 6 months - worsening more so and then x2 days ago could barely move it so went to - did give her methocarbamol - has [...] PA Shou lder Pain/problem (right) 01/15/2022 Travel from Last 3 Months Immunizations Name [...] Brother Mike Heart Disease Father age 57 [place] Cancer-breast Maternal Aunt Cancer-breast Maternal Grandmother Hypertension Mother Other Mother brain aneurysm Cancer-breast Paternal Aunt Good Health Sister 1 Sharon Good Health Sister 2 Juliette Relation Name Status Comments [...] in contact with No / Unsu re 03/29/2022 7:49 AM CDT someone who was confirmed or suspected to have Coronavirus/COVID-19? Obstetrics History Para Term AB IAB SAB Ectopic Multiple Living Live Births 3 2 2 1 2 2 Date Outcome GA Total Labor/2nd/3rd Weight Sex Delivery Anes PTL Soraya A 1 A5 Name Clin Labor 1984 Term Vag-Force Sophie ps ng Delivery Location: [place], [place] 1985 AB Delivery Location: [place], [place] 1986 Term Living Delivery Location: [place] Last Filed Vital Signs Vital Sign Reading Time Taken Comments Blood Pressure 146/60 03/21/2022 1:30 PM CDT Pulse 92 03/21/2022 1:30 PM CDT Temperature 36.9 ??C (98.5 ??F) [...] Encounters Date Type Specialty Care Team Description 04/05/2022 Office Visit Babita Amin, WASH WORKER [address] [facility], [place] [phone] (Wo rk) 04/15/2022 Hospital Encounter Stacy Adams, DO [address] [facility], [place] [phone] (Wo rk) 04/15/2022 Surgery Jose Roberto Adams, DO COLONOSCOPY [address] [facility], [place] [phone] (Wo rk) 04/15/2022 Procedure Only Jose Roberto Adams, DO [address] [facility], [place] [address] (Wo rk) Scheduled Procedures Name Priority Associated Diagnoses Date/Time COLONOSCOPY 04/15/2022 12:00 PM CDT Health Maintenance Due Date Last Done Comments Hepatitis C screening for age 0511[birth year]04[birth year]1985 18-79 Colonoscopy through age 75 11/04/2012 Pneumococcal series for age 19-64 09/24/2015 09/23/2014 (2 - PPSV23 or PCV20) Zoster (shingles) series for age 0511/04/2017 50+ (1 of 2) Mammogram for age 45-75 02/13/2019 02/13/2018 COVID-19 vaccine series (3 - 04/19/2021 02/22/2021, 021 Booster for Pfizer series) Influenza [...] Procedure Name Priority Date/Time Associated Comments Diagnosis MR SPINE LUMBAR WO Routine 03/29/2022 9:32 AM Radicular pain R esults for this CDT procedure are i n the results section. MR SHOULDER RIGHT WO Routine 03/29/2022 9:31 AM Chronic right Results for this CDT shoulder pain procedure are in the results section. CT CHEST WO Routine 03/29/2022 9:11 AM Pulmonary nodule, Resu lts for this CDT right procedure are i n the results section. TSH Routine 03/11/2022 3:22 PM Screening for Results for this CDT thyroid disorder procedure a re in the results section. LIPID PANEL W REFLEX Routine 03/11/2022 3:22 [...] in initial encounter the result s section. from Last 3 Months Results MR SPINE LUMBAR WO (03/29/2022 9:32 AM CDT) Anatomical Region Laterality Modality Spine, LUMBAR SPINE Magnetic Resonance Specimen (Source) Anatomical Collection Method Collection Time Re ceived Time Location / / Volume Laterality 03/29/2022 10:56 AM CDT Impressions 03/29/2022 10:56 AM CDT 1. Normal alignment. No fractures. 2. Lumbar spondylosis. 3. At L3-4, annular bulge. No spinal can al or neural foraminal narrowing. 4. At L4-5, disc degeneration diffuse di sc bulge. Left paracentral disc protrusion. Mild narrowing of spinal canal. Potential impingement of the traversing left L5 nerve root. 5. At L5-S1, mild narrowing of the bilat eral neural foramina Dictated by Leon Levine MD @ 03/29/2022 10: 56:22 AM (Electronically Signed) Narrative 03/29/2022 10:56 AM CDT For Patients: ??As a result of the Century Cures Act, medical imaging exams and procedure report s are released immediately into your [facility]. ??You may view this report before your referring provider. ??If you have questions, please contact your health care provider. INDICATION: Low back pain. Radicular pain. COMPARISON: None. TECHNIQUE: Sagittal T1, T2, and STIR sequences. Axi al T1 and T2 weighted sequences. FINDINGS: Normal vertebral body alignment. No frac tures. No vertebral body loss of height. No ligamentous injury. No suspicious osseous lesions. Normal conus terminates at L1. [id number]: No spinal canal or neural foraminal narrowing. L1-2: Disc degeneration posterior disc b ulge. No narrowing of spinal canal. No neural foraminal narrowing. L2-3: Disc degeneration posterior disc b ulge. No spinal canal or neural foraminal narrowing. L3-4: Annular bulge. No narrowing of spi nal canal. No neural foraminal narrowing. L4-5: Disc degeneration and diffuse disc bulge. Left paracentral disc protrusion measures approximately 3 mm in short axis. Mild narrowing of spinal canal. Left subarticular recess narrowing with potent ial impingement of the traversing left L 5 nerve root. No neural foraminal narrowing. Mild facet arthropathy. L5-S1: Disc degeneration. Diffuse disc b ulge. No narrowing of spinal canal. No impingement of the traversing S1 nerve roots. Mild narrowing of the bilateral foramina. Normal visualized SI joints. Normal paraspinal soft tissues. Procedure Note Leon Levine MD, PhD - 2 For Patients: As a result of the ntury Cures Act, medical imaging exams and procedure reports are released immediately into your electronic medical record. You may view this report before your referring provider. If you have questions, please contact [facility] health care provider. INDICATION: Low back pain. Radicular pain. COMPARISON: None. TECHNIQUE: Sagittal T1, T2, and STIR sequences. Axi al T1 and T2 weighted sequences. FINDINGS: Normal vertebral body alignment. No frac tures. No vertebral body loss of height. No ligamentous injury. No suspicious osseous lesions. Normal conus terminates at L1. [id number]: No spinal canal or neural foraminal narrowing. L1-2: Disc degeneration posterior disc b ulge. No narrowing of spinal canal. No neural foraminal narrowing. L2-3: Disc degeneration posterior disc b ulge. No spinal canal or neural foraminal narrowing. L3-4: Annular bulge. No narrowing of spi nal canal. No neural foraminal narrowing. L4-5: Disc degeneration and diffuse disc bulge. Left paracentral disc protrusion measures approximately 3 mm in short axis. Mild narrowing of spinal canal. Left subarticular recess narrowing with potential impingement of the traversing left L5 ne rve root. No neural foraminal narrowing. Mild facet arthropathy. L5-S1: Disc degeneration. Diffuse disc b ulge. No narrowing of spinal canal. No impingement of the traversing S1 nerve roots. Mild narrowing of the bilateral foramina. Normal visualized SI joints. Normal paraspinal soft tissues. IMPRESSION: 1. Normal alignment. No fractures. 2. Lumbar spondylosis. 3. At L3-4, annular bulge. No spinal can al or neural foraminal narrowing. 4. At L4-5, disc degeneration diffuse di sc bulge. Left paracentral disc protrusion. Mild narrowing of spinal canal. Potential impingement of the traversing left L5 nerve root. 5. At L5-S1, mild narrowing of the bilat eral neural foramina Dictated by Leon Levine MD @ 03/29/2022 10: 56:22 AM (Electronically Signed) Anamika Amin WASH WORKER MR MR SHOULDER RIGHT WO (03/29/2022 9:31 AM CDT) Anatomical Region Laterality Modality SHOULDER R Magnetic Resonance Specimen (Source) Anatomical Collection Method Collection Time Re ceived Time Location / / Volume Laterality 04/01/2022 8:30 AM CDT Impressions 04/01/2022 8:30 AM CDT 1. Full-thickness supraspinatus tendon tearing along with partial-thickness distal infraspinatus tendon tearing. Mild supraspinatus and infraspinatus muscle atrophy. 2. Distal subscapularis tendinosis with partial tearing superiorly. 3. Advanced AC joint degenerative arthro sis with periarticular bone marrow edema and AC joint capsular edema. 4. Subacromial spurring. Superior sublux ation of the humeral head. Both findings narrow the acromiohumeral interval. Dictated by Rao Saxena MD @ 2021 8:30:57 AM (Electronically Signed) Narrative 04/01/2022 8:30 AM CDT For Patients: ??As a result of the Cures Act, medical imaging exams and procedure report s are released immediately into your [facility] medical record. ??You may view this report before your referring provider. ??If you have questions, please contact your health care provider. HISTORY: Chronic right shoulder pain. TECHNIQUE: Noncontrast MRI of the right shoulder. COMPARISON: Radiographs 01/17/2022. FINDINGS: Rotator cuff: The distal supraspinatus a nd infraspinatus tendons are abnormal over a combined approximately 3.5 cm anterior/posterior extent. This includes full-thickness tearing of the supraspinatus te ndon over an approximately 2.3 cm anteri or/posterior by 2.8 cm medial/lateral extent. Additional partial thickness tendon tearing extends more posteriorly for an additional approximately 1.2 cm to invol ve the anterior infraspinatus tendon. Th ere is mild atrophy of both supraspinatus and infraspinatus muscles. The distal teres minor tendon is intact. Teres minor muscle mass is maintained. There is tend inosis of the distal subscapularis tendo n with partial tearing of the superior cm of the distal tendon. The subscapularis muscle mass is maintained. - AC joint and coracoacromial arch: Severe AC joint degenerative arthrosis with periarticular bone marrow edema and AC joint capsular edema. The coracoclavicular ligament is intact. There is spurring of t he undersurface of the lateral acromion. Underlying type 1 acromial morphology. Superior subluxation of the humeral head is present. The acromiohumeral interval is narrowed. There is subacromial-subdelt oid bursal fluid which is nonspecific in the setting of full-thickness rotator cuff tendon tearing. The subcoracoid interval measures approximately 7-8 mm. - Biceps-labral complex: The long head of biceps tendon is intact. There is no subluxation or dislocation of the tendon from the bicipital groove. Degenerative fraying of the superior to posterior superior labrum. - Glenohumeral joint: Small amount of jessica oid joint fluid. Superior subluxation of the humeral head. The articular surfaces are smooth without focal articular cartilage defect. Mild synovitis within the joint space. - Bones and soft tissues: No acute fractur e or avascular necrosis. No abnormality within the suprascapular or spinoglenoid notches nor within the quadrilateral space. Procedure Note Rao Saxena MD - 2 For Patients: As a result of the ntury Cures Act, medical imaging exams and procedure reports are released immediately into your electronic medical record. You may view this report before your referring provider. If you have questions, please contact [facility] care provider. HISTORY: Chronic right shoulder pain. TECHNIQUE: Noncontrast MRI of the right shoulder. COMPARISON: Radiographs 01/17/2022. FINDINGS: Rotator cuff: The distal supraspinatus a nd infraspinatus tendons are abnormal over a combined approximately 3.5 cm anterior/posterior extent. This includes full-thickness tearing of the supraspinatus tendon over an approximately 2.3 cm anterior/posterior by 2.8 cm medial/lateral extent. Additional partial thickness tendon tearing extends more posteriorly for an additional approximately 1.2 cm to involve the anterior infraspinatus tendon. There is mild atrophy of both barragan praspinatus and infraspinatus muscles. The distal teres minor tendon is intact. Teres minor muscle mass is maintained. There is tendinosis of the distal subscapularis tendon with partial tearing of the superior cm of th e distal tendon. The subscapularis muscle mass is maintained. - AC joint and coracoacromial arch: Severe AC joint degenerative arthrosis with periarticular bone marrow edema and AC joint capsular edema. The coracoclavicular ligament is intact. There is spurring of the undersurface of the lateral acromion. Underlying type 1 acromial morphology. Superior subluxation of the humeral head is present. The acromiohumeral interval is narrowed. There is subacromial-subdeltoid bursal fluid which is nonspecific in the setting of full-thick ness rotator cuff tendon tearing. The subcoracoid interval measures approximately 7-8 mm. - Biceps-labral complex: The long head of biceps tendon is intact. There is no subluxation or dislocation of the tendon from the bicipital groove. Degenerative fraying of the superior to posterior superior labrum. - Glenohumeral joint: Small amount of jessica oid joint fluid. Superior subluxation of the humeral head. The articular surfaces are smooth without focal articular cartilage defect. Mild synovitis within the joint space. - Bones and soft tissues: No acute fractur e or avascular necrosis. No abnormality within the suprascapular or spinoglenoid notches nor within the quadrilateral space. IMPRESSION: 1. Full-thickness supraspinatus tendon t earing along with partial-thickness distal infraspinatus tendon tearing. Mild supraspinatus and infraspinatus muscle atrophy. 2. Distal subscapularis tendinosis with partial tearing superiorly. 3. Advanced AC joint degenerative arthro sis with periarticular bone marrow edema and AC joint capsular edema. 4. Subacromial spurring. Superior sublux ation of the humeral head. Both findings narrow the acromiohumeral interval. Dictated by Rao Saxena MD @ 2021 8:30:57 AM (Electronically Signed) Anamika Amin NP MR CT CHEST WO (03/29/2022 9:11 AM CDT) Anatomical Region Laterality Modality CHEST, THORAX, HEART Computed Tomography Specimen (Source) Anatomical Collection Method Collection Time Re ceived Time Location / / Volume Laterality 03/29/2022 9:32 AM CDT Impressions 03/29/2022 9:32 AM CDT 1. New bronchiectasis and linear scarring in the right middle lobe. Small lymph nodes in the mid mediastinum are likely reactive. Previously noted right upper lobe pulmonary nodule is no longer visible. 2. No additional pulmonary pathology. 3. Chronic atherosclerotic disease, left thyroid nodules and left adrenal enlargement similar to the previous. Please note that [facility] use dose modulation, iterative reconstruction, and/or weight-based dosing when appropriate to reduce radiation dose to as low as reasonably achievable. Dictated by Shellie Pringle MD @ 03/29/2022 9:32: 47 AM (Electronically Signed) Narrative 03/29/2022 9:32 AM CDT For Patients: ??As a result of the Cures Act, medical imaging exams and procedure report s are released immediately into your [facility] medical record. ??You may view this report before your referring provider. ??If you have questions, please contact your health care provider. INDICATION: Right pulmonary nodule. TECHNIQUE: CT chest without contrast. COMPARISON: CT chest with contrast 08/06/2021 FINDINGS: Cardiovascular structures: Heart size is normal. Thoracic aorta and main pulmonary artery are normal in caliber. Atherosclerotic calcification coronary arteries and thoracic aorta. Mediastinum and kari: Pretracheal and barragan bcarinal lymph nodes are normal in size. No sign of mass or significant adenopathy. Left thyroid nodule similar to the previous. Lungs: There is new right middle lobe br onchiectasis and linear scarring extending from the right hilum to the right anterior chest wall. The previously noted nodule in the anterior right upper lobe adj acent to the minor fissure is not visibl e. Remaining right and left lung higuera are clear. Pleura and pericardium: No effusions. Chest wall and axilla: No mass or adenop athy. Bones: Degenerative spine. Probable smal l bone island, T11 vertebral body. No other lytic or osteoblastic skeletal lesions. Upper abdomen: Left adrenal enlargement similar to the previous. Otherwise unremarkable. Procedure Note Mckinley Pringle MD - 03/29/2022F ormatting of this note might be different from the original. For Patients: As a result of the ntury Cures Act, medical imaging exams and procedure reports are released immediately into your electronic medical record. You may view this report before your referring provider. If you have questions, please contact [facility] health care provider. INDICATION: Right pulmonary nodule. TECHNIQUE: CT chest without contrast. COMPARISON: CT chest with contrast 08/06/2021 FINDINGS: Cardiovascular structures: Heart size is normal. Thoracic aorta and main pulmonary artery are normal in caliber. Atherosclerotic calcification coronary arteries and thoracic aorta. Mediastinum and kari: Pretracheal and barragan bcarinal lymph nodes are normal in size. No sign of mass or significant adenopathy. Left thyroid nodule similar to the previous. Lungs: There is new right middle lobe br onchiectasis and linear scarring extending from the right hilum to the right anterior chest wall. The previously noted nodule in the anterior right upper lobe adjacent to the minor fissure is not visible. Remaining right and left lung higuera are clear. Pleura and pericardium: No effusions. Chest wall and axilla: No mass or adenop athy. Bones: Degenerative spine. Probable smal l bone island, T11 vertebral body. No other lytic or osteoblastic skeletal lesions. Upper abdomen: Left adrenal enlargement similar to the previous. Otherwise unremarkable. IMPRESSION: 1. New bronchiectasis and linear scarrin g in the right middle lobe. Small lymph nodes in the mid mediastinum are likely reactive. Previously noted right upper lobe pulmonary nodule is no longer visible. 2. No additional pulmonary pathology. 3. Chronic atherosclerotic disease, left thyroid nodules and left adrenal enlargement similar to the previous. Please note that all CT scans at this [facility] use dose modulation, iterative reconstruction, and/or weight-based dosing when appropriate to reduce radiation dose to as low as reasonably achievable. Dictated by Shellie Pringle MD @ 03/29/2022 9:32: 47 AM (Electronically Signed) Anamika Amin NP CT (ABNORMAL) LIPID PANEL W REFLEX MEASURED LDL (03/11/2022 3:22 PM CDT) [facility] Method Time Signature CHOLESTEROL,TOTAL 167 100 - 199 03/11/2022 [place] mg/dL 4:04 PM [facility] TRIGLYCERIDES 234 (H) <150 03/11/2022 [place] mg/dL 4:04 PM [facility] HDL CHOLESTEROL 36 (L) >40 mg/dL 03/11/2022 [place] 4:04 PM T [facility] LAB[facility] NON-HDL 131 <145 03/11/2022 [place] CHOLESTEROL mg/dl 4:04 PM [facility] CHOL/HDL RATIO 4.64 (H) <4.50 03/11/2022 [place] 4:04 PM [facility] LDL CHOLESTEROL 84 <=130 03/11/2022 [place] mg/dL 4:04 PM T [facility] LAB[facility] VLDL CHOLESTEROL 47 (H) <=30 03/11/2022 [place] mg/dL 4:04 PM T [facility] LAB[facility] PROVIDER ORDERED RANDOM 03/11/2022 [place] STATUS 4:04 PM CDT [facility] Specimen Anatomical Collection Method / Collection Time Recei alaina Time (Source) Location / Volume Laterality Blood BLOOD SPECIMEN / Venipuncture / 03/11/2022 3:22 2021 3:25 Unknown Unknown PM CDT PM CDT Anamika Amin NP CHEMISTRY Performing Organization Address City/State/ZIP Code Phon e Number [facility] [address] [place] [address] TSH (03/11/2022 3:22 PM CDT) P athologist Signature TSH 0.91 0.35 - 4.94 03/13/2022 [facility] uIU/mL 2:54 PM CDT LABORATORY-CENTR AL LABORATORY Specimen Anatomical Collection Method / Collection Time Recei alaina Time (Source) Location / Volume Laterality Blood BLOOD SPECIMEN / Venipuncture / 03/11/2022 3:22 2021 3:25 Unknown Unknown PM CDT PM CDT [facility] LABORATORY-CENTRAL LABORAT [place] - 03/13/2022 2:54 PM CDT In Adults, TSH values between 5.00 and 10.00 uIU/ml do not necessarily indicate the presence of Hyp othyroidism. Correlation with clinical findings such as presence of goiter and/or Thyroperoxidase (TPO) Antibody ma y be helpful. For more information please refer to ROS 20 ; 291: 228-238. Anamika Amin WASH WORKER CHEMISTRY Performing Organization Address City/[facility]/ZIP Code Phon e Number [facility] [address] [place] [address] LABORATORY-CENTRAL 2000 LABORATORY HEMOGLOBIN A1C MONITORING (POCT) (03/11/2022 3:22 PM CDT) P athologist Signature HEMOGLOBIN A1C 6.0 <=6.4 % 03/11/2022 [facility] MONITORING 3:34 PM CDT [place] [facility] Specimen Anatomical Collection Method / Collection Time Recei alaina Time (Source) Location / Volume Laterality Blood BLOOD SPECIMEN / Venipuncture / 03/11/2022 3:22 2021 3:25 Unknown Unknown PM CDT PM CDT Narrative [facility] - 022 3:34 PM CDT ? (<=6.9%) [...] : Untreated Anemias, Splenectomy ? Anamika Amin WASH WORKER CHEMISTRY Performing Organization Address City/State/ZIP Code Phon e Number [facility] [address] [facility] [place] [address] PATH TISSUE EXAM (02/04/2022 4:43 PM CDT) Component Value Ref Test Analysis Performed At Patholo gist Range Method Time Signature Case Report Pathology Report ?Case: [id number] ? 02/06/2022 [facility] Authorizing Provider: ??Jessica Ham MD ?Collected: ? 02/04/2022 1643 ? 2:01 PM HEALTH Ordering Location: ? [facility] ?? Received: ?02/04/2022 1655 ? CDT LABOR [...] [facility] Information 2:01 PM HEALTH CDT LABORATORY-C [facility] Gross A) Received in formalin, lab [...] discrete foci of hemorrhage or necrosis identified. [employer] Sawyer sections are submitted in 8 cassettes. 2:01 PM HEALTH CDT LABORATORY-C 02/05/2022 [facility] Microscopic The final diagnosis is based on microscopic examination of appropriate sections of all specimens. 02/06/2022 [place] Description 2:01 PM HEALTH CDT LABORATORY-C Primarily in the subcutis is prominent fatty tissue showing no significant mitotic activity or atypia. In the context of a clinical mass this is compatible with a lipoma. The presence of ??green ink is confirmed on tissue sections. [facility] LAB[facility]ATORY Additional 02/06/2022 [facility] Information Interpreted at [facility], Central Laboratory - [address], [place] [address] 2:01 PM HEALTH CDT LABORATORY-C ENTRAL LABORATORY Specimen Anatomical Collection Method Collection Time Receive d Time (Source) Location / / Volume Laterality Other (Right Non-Blood / 02/04/2022 4:43 PM 4:55 Shoulder) Unknown CDT PM CDT Jessica Mcnally MD PATHOLOGY/CYTOLOGY Performing Organization Address City/State/ZIP Code Phon e Number [facility] [employer] [address] [place] [address] LABORATORY-CENTRAL 2000 LABORATORY XR SHOULDER 3 VIEWS [...] For Patients: ??As a result of the Century Cures Act, medical imaging exams and procedure report s are released immediately into your [facility] medical record. ??You may view this report [...] For Patients: As a result of the ntury Cures Act, medical imaging exams and procedure reports are released immediately into your electronic medical record. You may view this report before your referring provider. If you have questions, please contact yo health care provider. INDICATION: Strain of the [...] MD @ Jan 17 3:10PM (Electronically Signed) Jennyi Elena DO GENERAL IMAGING from Last 3 Months Insurance Payer Benefit Plan / Subscriber ID Effective Dates Phone Addre ss Type Group [facility] [employer] [id number] 2021-Present [address] [place] [address] [employer] [id number] Through [address] [facility] [address] ATTN: [place] [address] (Home) [place] [id number] Maria DMichelle Coyle Personal/Family Self [address] (Home) [place] [id number] Advance Directives Latest Code Status on File Code Status Date Activated Date Inactivated Comments Full Code 08/06/2021 8:55 PM 08/08/2021 8:46 PM Code Status Discussion: Reviewed Preferences 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
--- NOTE | 2022-04-05 07:15 | CRLHL7_ITS ---
For Patients: As a result of the Century Cures Act, medical imaging exams and procedure reports are released immediately into your electronic medical record. You may view this report before your referring provider. If you have questions, please contact your health care provider. INDICATION: Family history of brain aneurysm. TECHNIQUE: [id number] MRA images acquired through the head. Axial diffusion imaging acquired through the brain. COMPARISON None. FINDINGS: The visualized internal carotid, middle cerebral, and anterior cerebral arteries are widely patent. The vertebral, basilar, and posterior cerebral arteries are widely patent. No intracranial aneurysm or high-flow vascular malformation. No diffusion restriction to suggest acute infarction. IMPRESSION: 1. Unremarkable MRA of the head. Specifically, no intracranial aneurysm. 2. No acute infarction. Dictated by Dougie Gale MD @ 04/05/2022 1:35:56 PM (Electronically Signed)
== END 2022-04-05 06:57 | disposition home or self-care (01) ==
PROVIDERS: PCP Nurse Practitioner Family; Visit Provider Nurse Practitioner Family
DX: Z82.49 Family history of ischemic heart disease and other diseases of the circulatory system (principal)
CPT/HCPCS: 70544

== ENCOUNTER 2024-01-13 11:36 | Outpatient (CLI) | payer MEDICAID, SELFPAY ==
--- OUTSIDE RECORDS SUMMARY | 2024-01-13 11:38 | XMS_ITS | Clinical Summary ---
Author Organization [facility] Address [place], [place] [address] Care Team Providers Care Metal Alloy Scientist Name Role Phone Anamika Amin NP Primary Care Provider + [phone] Allergies No known active allergies Medications Medication Sig Dispensed Refills Start Date End Date Status acetaminophen (TYLENOL) 325 mg tablet Take 650 mg by mouth every 4 hours if needed for Pain. Max acetaminophen dose: 4000mg in 24 hrs. Active CPAPIndications:O SA (obstructive sleep apnea) CPAP machine for home use at pressure 17 cmw, full face mask x1/3month with a full face cushion x1/mo 1 Each 11 11/01/2021 Active ibuprofen (ADVIL; MOTRIN) 600 mg tabletIndications :Chest pain, unspecified type Take 1 Tablet (600 mg) by mouth every 6 hours if needed for Pain. Maximum of 3200 mg in 24 hours. 30 Tablet 09/25/2022 Active escitalopram oxalate (LEXAPRO) 20 mg tabletIndications :Depression, recurrent (HC),Anxiety Take 1 tablet by mouth once daily 90 Tablet 3 10/17/2022 Active amLODIPine (NORVASC) 10 mg tabletIndications :HTN (hypertension) Take 1 Tablet (10 mg) by mouth once daily. 90 Tablet 3 10/17/2022 Active hydroCHLOROthiazi de (HCTZ) 25 mg tabletIndications :HTN (hypertension) Take 1 Tablet (25 mg) by mouth once daily. 90 Tablet 3 10/17/2022 Active lisinopriL (PRINIVIL; ZESTRIL) 20 mg tabletIndications :HTN (hypertension) Take 1 Tablet (20 mg) by mouth once daily. 90 Tablet 3 10/17/2022 Active nystatin powder (MYCOSTATIN) powderIndications :Rash Apply 1 Strip topically to affected area(s) three times daily. 60 g 07/05/2023 Active albuterol HFA (PRO-AIR; VENTOLIN; PROVENTIL) 90 mcg/actuation inhalerIndication s:Chronic obstructive pulmonary disease with acute exacerbation (HC) Inhale 1-2 Puffs by mouth every 4 hours if needed for Shortness Of Breath or Wheezing. 1 Each 07/05/2023 Active tiotropium bromide (Spiriva Respimat) 2.5 mcg/actuation mist for inhalationIndicat ions:Chronic obstructive pulmonary disease with acute exacerbation (HC) Inhale 2 Puffs by mouth once daily. 4 g 07/05/2023 Active metFORMIN (GLUCOPHAGE) 500 mg tabletIndications :Type 2 diabetes mellitus without complication, without long-term current use of insulin (HC) TAKE ONE TABLET BY MOUTH ONE TIME DAILY WITH A MEAL 90 Tablet 10/09/2023 Active gemfibroziL (LOPID) 600 mg tabletIndications :Hypertriglycerid emia TAKE ONE TABLET BY MOUTH TWICE DAILY BEFORE MEALS 240 Tablet 10/27/2023 Active tiZANidine (ZANAFLEX) 4 mg tabletIndications :Lumbar radiculopathy, right Take 1 Tablet (4 mg) by mouth every 6 hours if needed for Muscle Spasm. 30 Tablet 12/22/2023 Active nystatin powder (MYCOSTATIN) powderIndications :Intertrigo Apply 1 Strip topically to affected area(s) three times daily. 60 g 12/22/2023 Active metFORMIN (GLUCOPHAGE XR) 500 mg Extended-Release tabletIndications :Type 2 diabetes mellitus without complication, without long-term current use of insulin (HC) Take 1 Tablet (500 mg) by mouth once daily. 90 Tablet 3 12/22/2023 Active HYDROcodone-aceta minophen (5-325 mg/tablet)Indicat ions:Lumbar radiculopathy, right Take 1 Tablet by mouth every 4 hours if needed for Pain. Max acetaminophen dose: 4000 mg in 24 hrs. 18 Tablet 01/05/2024 Active ciclopirox solution (Penlac) 8 % solutionIndicatio ns:Fungal nail infection Apply topically to affected area(s) at bedtime. 6.6 mL 5 11/26/2021 4 Discontinu ed(*Patien t states no longer taking) omeprazole (PRILOSEC) 40 mg Delayed-Release capsuleIndication s:Abdominal pain, unspecified abdominal location Take 1 Capsule (40 mg) by mouth once daily. 90 Capsule 3 10/17/2022 4 Discontinu ed(*Patien t states no longer taking) methylPREDNISolon e (Medrol, Michael,) 4 mg tabletIndications :Lumbar radiculopathy, right Take by mouth as instructed per packaging. 21 Tablet 12/22/2023 4 Discontinu ed(*Patien t states no longer taking) HYDROcodone-aceta minophen (5-325 mg/tablet)Indicat ions:Lumbar radiculopathy, right Take 1 Tablet by mouth every 4 hours if needed for Pain. Max acetaminophen dose: 4000 mg in 24 hrs. 20 Tablet 12/22/2023 4 Discontinu ed(Reorder (E-cancel not sent)) Active Problems Problem Noted Date Diagnosed Date Rotator cuff syndrome of right shoulder 10/18/19 23 Radicular pain 10/17/2022 Degenerative disc disease, lumbar 10/17/2022 Chronic GERD 03/21/2022 Other fatigue 03/21/2022 Anxiety 03/21/2022 Panic disorder 03/21/2022 Recurrent major depressive disorder 03/21/2022 Obsessive compulsive disorder 03/21/2022 Vitamin D deficiency 03/21/2022 Post traumatic stress disorder 03/21/2022 Abnormal mammogram 03/21/2022 Pap smear for cervical cancer screening 11/22/19 22 Overview: 11/2021 NIL/HPV negative Plan: Pap/HPV due 11/2026 VIKTORIA 10/14/2021 AHI- 117 11/01/2021 Pulmonary nodule, right 09/24/2021 Type 2 diabetes mellitus wit hout complication, without long-term current use of insulin 08/15/2021 Polymyalgia rheumatica 08/13/2021 Class 3 severe obesity with body mass index (BMI) of 50.0 to 59.9 in adult 08/07/2021 COPD with acute exacerbation 08/06/2021 Chronic low back pain 08/06/2021 Tobacco abuse 02/18/2018 Osteoarthritis of lower back 01/30/2018 Overview: Facet Arthritis, Multi Level Degenerative Disc Dease HTN (hypertension) 10/19/2015 Obstructive sleep apnea syndrome 10/19/2015 Polyp of colon Overview: Benign adenomatous polyp. 5 years. Due: 03/2027 Resolved Problems Problem Noted Date Diagnosed Date Resolved Date Depression, recurrent 10/17/20222023 Acute respiratory failure with hypoxia 08/06/2021 01/05/2024 UTI (urinary tract infection) 08/06/2021 01/05/2024 Mammogram declined 02/18/2018 Overview: 02/16/18 Colonoscopy refused 02/18/2018 01/05/20 24 Overview: 02/16/18 Elevated blood sugar 02/05/2018 024 Non morbid obesity due to excess calories 10/19/2015 01/05/2024 Encounters Date Type Department Care Team Description 01/13/[address] [phone] Anamika Amin NP Refill Request (Escitalopram Oxalate, Metformin, Amlodipine, Hydrochlorothiazide , Lisinopril) 01/07/2024 Transcribe Orders [facility] [address] [place] [address] Brennon Escobedo MD 01/07/2024 Telephone [facility] [address] [place] [address] Brennon Escobedo MD OUTSIDE KEANU ORDER 01/05/2024 3:10 PM CDT Office Visit [facility] [address] [place] [address] Livier Sanches DO Back Pain (MRI done this morning; started about 12/16-12/17, last day at work was 12/20; not sleeping; going into the hip on the right side, then behind the knee into the right side of right calf; 8/10 pain ) 01/05/2024 7:44 AM CDT - 01/05/2024 11:59 PM CDT Hospital Encounter [facility] [address] [place] [address] Giulia Duran PA Lumbar radiculopathy, right 01/05/2024 Telephone [facility] [address] [address] Giulia Duran PA 01/05/2024 Travel 12/29/2023 Telephone [facility] [address] [address] Giulia Duran PA right leg pain 12/24/2023 10:00 AM CDT Office Visit [facility] [address] [address] Giulia Duran PA Consult (Lumbar radiculopathy, right) 12/24/2023 Telephone [facility] [address] [place] [address] Juan Mckenzie MD Other 12/22/2023 11:00 AM CDT Office Visit [facility] [address] [place] [address] Juan Mckenzie MD Follow Up (urgent care [facility] 12/16, 12/10 back pain was terrible and could hardly walk or move/Pain goes from back down to right leg) 12/22/2023 Travel 10/24/[address] [phone] Anamika Amin NP Refill Request (Gemfibrozil) from Last 3 Months Immunizations Name Administration Dates Next Due COVID-19 vaccine ([employer] NTISpeak 30mcg/0.3mL) KATALINA HA 02/22/2021,02/01/2021 Hepatitis B (Adult) 05/25/1992,12/23/1991,1991 Influenza Virus, Unspecified 04/22/2014,05/28/20 13 Influenza, IIV3 (Age >=3 years) 04/22/2014,05/28 Pneumococcal conj 13-Valent (Prevnar 13) 015 Polio Virus, Unspecified 08/14/1976,12/10/1971 Td (Age >=7 Years) 09/23/2014,05/01/2005, 977 Tdap 09/02/2014 Family History Medical History Relation Name Comments Good Health Brother Mike Alcoholism Father Depression Father Heart Disease Father age 57 [place] Cancer-breast Maternal Aunt Depression Mother Hypertension Mother Obesity Mother Other Mother brain aneurysm Cancer-breast Other paternal cousi n Cancer-breast Paternal Aunt Cancer-breast Paternal Grandmother Depression Sister 1 Sharon Good Health Sister 1 Sharon Good Health Sister 2 Juliette Relation Name Status Comments Brother Mike Father Maternal Aunt 2 Aunts Maternal Grandmother Mother Alive Other Paternal Aunt Paternal Grandmother Sister 1 Sharon Sister 2 Juliette Social History Tobacco Use Types Packs/Day Years Used Date Smoking Tobacco: Every Day Cigarettes 1.5 40.1 Started: 12/24/1983 Smokeless Tobacco: Never Tobacco Cessation:Ready to Q uit: Not Asked; Counseling Given: Not Answered Comments:when she is ready Alcohol Use Standard Drinks/Week Comments No 0 (1 standard drink = 0.6 oz pur e alcohol) PHQ-2 Answer Date Recorded PHQ-2 TOTAL SCORE 5 07/25/2023 Social Connections Answer Date Recorded Frequency of Communication with Friends and Fami ly Not on file 11/27/2022 Financial Resource Strain Answer Date R ecorded Difficulty of Paying Living Expenses 3 11/26/2021 Difficulty of Paying Living Expenses Not on file 11/26/2021 Food Insecurity Answer Date Recorded Worried About Running Out of Food in the Last Ye ar 1 11/26/2021 Transportation Needs Answer Date Record ed Lack of Transportation (Medical) 1 11/26/2021 Housing Stability Answer Date Recorded Unable to Pay for Housing in the Last Year 1 11/26/2021 Sex and Gender Information Value Date Recorded Sex Assigned at Not on file Gender Identity Not on file Sexual Orientation Not on file Obstetrics History Para Term AB IAB SAB Ectopic Multiple Livin g Live Births 3 2 2 1 2 2 Date Outcome GA Total Labor Labor/2nd/3rd Weight Sex Type Anes PTL Soraya A1 A5 Name Clin 1985 Term Vag-F orcep s Living Delivery Location:[place], [place] 1985 AB Delivery Location:[place], [place] 1988 Term Living Delivery Location:[place] Last Filed Vital Signs Vital Sign Reading Time Taken Comments Blood Pressure 128/62 01/05/2024 3:03 PM CDT Pulse 79 01/05/2024 3:03 PM CDT Temperature 37 ??C (98.6 ??F) 12/24/2023 9:53 AM CDT Respiratory Rate 16 12/24/2023 9:53 AM CDT Oxygen Saturation 97% 01/05/2024 3:03 PM CDT Inhaled Oxygen Concentration - - Weight 125 kg (275 lb 9.6 oz) 01/05/2024 3:03 PM CDT Height 163.1 cm (5' 4.2) 12/24/2023 9:53 AM CDT Body Mass Index 47.01 12/24/2023 9:53 AM CDT Plan of Treatment Upcoming Encounters Date Type Department Care Team (Late st Contact Info) Description 01/13/2024 1:40 PM CDT Office Visit [facility] [address] [place] [phone] Brennon Escobedo MD [address] [place] [address] Arrived Health Maintenance Due Date Last Done Comments HIV for age 15-65 11/04/1982 Hepatitis C screening for ag e 18-79 11/04/1985 Pneumococcal series for age 6-64 (2 of 2 - PPSV23 or PCV20) 11/18/2014 09/23/2014 Zoster (shingles) series for age 50+ (1 of 2) 11/04/2017 COVID-19 vaccine series (3 - 2022- season) 2023 02/22/2021, 02/01/[address] (for lung CA) ag e 50-80 03/29/2023 03/29/2022, 08/06/2021 Mammogram for age 45-75 06/28/2023 06/28/2022, 02/13 Influenza for age 50-64 02/22/2024 04/22/20 14, 04/22/2014, 05/28/2013, Additional history exists Depression screening for age 12+ 07/25/2024 07/25/2023, 07/01/2022, 11/26/2021, Additional history exists Tetanus booster 09/23/2024 09/23/2014, 08/21, 05/01/2005, Additional history exists BMI (ht and wt on same day) for age 18+ 12/23/2024 12/24/2023, 07/25/2023, 10/17/2022, Additional history exists Pap test for age 21-65 11/26/2026 11/26/2021, 2021 Lipids for age 45-75 03/11/2027 03/11/2022, 11/26/2021, 08/02/2021, Additional history exists Colonoscopy through age 75 04/15/2027 04/15/2022 Hepatitis B series for Diabetes Completed 05/25/1992, 12/23/1991, 11/12/1991 Tdap Completed 09/02/2014 Procedures Procedure Name Priority Date/Time Associated Diagnosis Comments AMB EPIDURAL STEROID INJECTION Routine 01/13/2024 8:17 AM CDT Lumbar radiculopathy HEMOGLOBIN A1C Routine 01/05/2024 4:00 PM CDT Type 2 diabetes mellitus without complication, without long-term current use of insulin (HC) MR SPINE LUMBAR WO JOHNNIE 01/05/2024 8: 30 AM CDT Lumbar radiculopathy, right XR MAMMO LEONARDA BILAT SCREEN Routine 06/28/2022 9:25 AM PATIENT SERVICES MANAGER Encounter for screening mammogram for malignant neoplasm of breast COLONOSCOPY 04/15/2022 12:[address] CHEST WO Routine 03/29/2022 9:11 AM CDT Pulmonary nodule, right LIPID PANEL W REFLEX MEASURED LDL Routine 03/11/2022 3:22 PM CDT Type 2 diabetes mellitus without complication, without long-term current use of insulin (HC) PHOTOGRAPHY ASSISTANT THIN PREP PAP SCREEN IMAGED Routine 11/26/2021 8:49 AM CDT Screening for malignant neoplasm of cervix from Last 3 Months or Most Recently Relevant to Health Maintenance Results * HEMOGLOBIN A1C MONITORING (POCT) (01/05/2024 4:00 PM CDT) HEMOGLOBIN A1C MONITORING (POCT) 6.1 <=6.4 % 01/05/2024 4:55 PM CDT [facility] Blood BLOOD SPECIMEN / Unknown Venipuncture / Unknown 01/05/2024 4:00 PM CDT 01/05/2024 4:06 PM CDT Narrative [facility] - 01/05/2024 4:55 PM CDT ? (<=6.9%) ? Indicates good control ? (7.0% to 7.9%) ? Indicates fair control ? (>=8.0%) ? Indicates poor control ?? NOTE: ??These thresholds are guidelines and ?individual targets may vary. Falsely low levels may be seen with: Recent Transfusion, Recent Significant Blood Loss, Hemolytic Diseases, or Falsely elevated levels may be seen with: Untreated Anemias, Splenectomy ? Livier Sanches DO CHEMISTRY [facility] [address] [place] [address] * MR SPINE LUMBAR WO CONTRAST (01/05/2024 8:30 AM CDT) Anatomical Region Laterality Modality Spine, LUMBAR SPINE Magnetic Res onance 01/05/2024 10:0 2 AM CDT Narrative 01/05/2024 10:02 AM CDT For Patients: ??As a result of the Century Cures Act, medical imaging exams and procedure reports are released immediately into your electronic medical record. ??You may view this report before your referring provider. ??If you have questions, please contact your health care provider. Indication: Right lumbar radiculopathy Technique: Multiplanar, multisequence, MRI of the lumbar spine, obtained without contrast. Comparison: MRI lumbar spine 08/01/2023 Findings: The normal lumbar lordosis is preserved. No significant spondylolisthesis. Scattered degenerative Schmorl`s nodes. No acute osseous abnormality. Minor Modic type 1 opposing endplate changes at L4-5 and L5-S1. Otherwise, unremarkable bone marrow signal. Conus medullaris terminates at L1-L2. No suspicious findings identified in the paraspinal soft tissues. Degenerative changes at the bilateral SI joints. T12-L1: No neural foraminal or spinal canal stenosis. L1-L2: Mild diffuse disc bulge, mild facet arthropathy. No neural foraminal or spinal canal stenosis. L2-L3: Mild diffuse disc bulge, mild right asymmetric facet arthropathy. No neural foraminal or spinal canal stenosis. L3-L4: Mild facet arthropathy. No neural foraminal or spinal canal stenosis. L4-L5: Mild diffuse disc bulge, facet arthropathy, new central disc protrusion with slight craniocaudal disc migration. Right lateral recess stenosis with impingement of the descending right L5 nerve root. No right, mild left neural foraminal narrowing. No central spinal canal stenosis. L5-S1: Diffuse right eccentric disc osteophyte complex, moderately advanced facet arthropathy. No left, mild right neural foraminal narrowing. No spinal canal stenosis. Impression: 1. At L4-L5, new central disc protrusion, impinging the descending right L5 nerve root along the lateral recess. 2. No other significant interval change relative to 08/01/2023. No high-grade neural foraminal or central spinal canal stenosis. Dictated by Hailey Zuniga MD @ 01/05/2024 10:02:22 AM (Electronically Signed) Procedure Note Hailey Zuniga, - 01/05/2024 For Patients: As a result of the 21st Century Cures Act, medical imagingexams and procedure reports are released immediately into your electronicmedical record. You may view this report before your referring provider.If you have questions, please contact your health care provider. Indication: Right lumbar radiculopathy Technique: Multiplanar, multisequence, MRI of the lumbar spine, obtained withoutcontrast. Comparison: MRI lumbar spine 08/01/2023 Findings: The normal lumbar lordosis is preserved. No significant spondylolisthesis.Scattered degenerative Schmorl`s nodes. No acute osseous abnormality.Minor Modic type 1 opposing endplate changes at L4-5 and L5-S1. Otherwise,unremarkable bone marrow signal. Conus medullaris terminates at L1-L2. Nosuspicious findings identified in the paraspinal soft tissues.Degenerative changes at the bilateral SI joints. T12-L1: No neural foraminal or spinal canal stenosis. L1-L2: Mild diffuse disc bulge, mild facet arthropathy. No neuralforaminal or spinal canal stenosis. L2-L3: Mild diffuse disc bulge, mild right asymmetric facet arthropathy.No neural foraminal or spinal canal stenosis. L3-L4: Mild facet arthropathy. No neural foraminal or spinal canalstenosis. L4-L5: Mild diffuse disc bulge, facet arthropathy, new central discprotrusion with slight craniocaudal disc migration. Right lateral recessstenosis with impingement of the descending right L5 nerve root. No right,mild left neural foraminal narrowing. No central spinal canal stenosis. L5-S1: Diffuse right eccentric disc osteophyte complex, moderatelyadvanced facet arthropathy. No left, mild right neural foraminalnarrowing. No spinal canal stenosis. Impression: 1. At L4-L5, new central disc protrusion, impinging the descending rightL5 nerve root along the lateral recess. 2. No other significant interval change relative to 08/01/2023. Nohigh-grade neural foraminal or central spinal canal stenosis. Dictated by Hailey Zuniga MD @ 01/05/2024 10:02:22 AM (Electronically Signed) Giulia SEGURA MR * XR MAMMO LEONARDA BILAT SCREEN (06/28/2022 9:25 AM PATIENT SERVICES MANAGER) Anatomical Region Laterality Modality BREASTS, Breast Left, Breast Right Bilateral Mammography Impressions 06/28/2022 9:41 AM PATIENT SERVICES MANAGER ??There is no radiographic evidence for malignancy. ??Recommend annual mammograms. MAMMOGRAM ASSESSMENT: ??ACR 2 Benign PATIENTS: You will also receive a letter with your examination results in an easy to read format. ??If you have questions about your results, please contact your referring provider. Narrative 06/28/2022 9:41 AM PATIENT SERVICES MANAGER For Patients: As a result of the Century Cures Act, medical imaging exams and procedure reports are released immediately into your electronic medical record. You may view this report before your referring provider. If you have questions, please contact your health care provider. XR MAMMO LEONARDA BILAT SCREEN [[id number]] CLINICAL HISTORY: ??This is an asymptomatic 56 y.o. patient. INDICATION FOR EXAM: Mammogram Screening. TECHNIQUE: CC & MLO views were obtained. ??This study was evaluated with the assistance of Computer-Aided Detection. Breast Tomosynthesis was used in interpretation. COMPAR[facility] FILMS[facility] ?? FINDINGS: ??The breasts are almost entirely fatty. ??No suspicious masses or microcalcifications. ??Benign appearing calcifications within both breasts and Intramammary lymph node within right breast. Anamika Amin NP MAMMO * COLONOSCOPY (04/15/2022 12:02 PM CDT) 04/15/2022 12:0 2 PM CDT Narrative Transcriptions Cooper Adams DO - 04/15/2022 2:35 PM CDT Patient Name: Michelle Killian Procedure Date: 04/15/2022 Gender: Female Date of : 1965 Admit Type: Ambulatory Procedure: Colonoscopy Proceduralist: Cooper Adams MD [facility] Referring MD: Anamika Amin Indications/Pre-Op Diagnosis: Screening for colorectal malignant neoplasm, This is the patient's first colonoscopy Medications: Propofol per Anesthesia Procedure Description: The patient had risks, benefits and alternatives explained to andgave informed consent. The patient had a stable cardiopulmonary status and judged an adequate candidate for conscious sedation. The endoscope -[id number] was passed through the anus andadvanced to the cecum, identified by appendiceal orifice and ileocecal valve.The colonoscopy was performed without difficulty. The patient toleratedthe procedure well. The quality of the bowel preparation was good. The ileocecal valve, appendiceal orifice, and rectum were photographed. Complications: No immediate complications. Estimated Blood Loss & Specimen: Estimated blood loss: none. Specimen collected - Yes and sent to Laboratory Findings: A 5 mm polyp was found in the transverse colon. The polyp wassessile. The polyp was removed with a cold snare. Resection and retrieval were complete. Verification of patient identification for the specimen was done. Estimated blood loss was minimal. A 3 mm polyp was found in the sigmoid colon. The polyp was sessile.The polyp was removed with a cold snare. Resection and retrieval were complete. Verification of patient identification for the specimen was done. Estimated blood loss was minimal. Non-bleeding internal hemorrhoids were found during retroflexion. The hemorrhoids were Grade I (internal hemorrhoids that do notprolapse). Impressions/Post-Op Diagnosis: - One 5 mm polyp in the transverse colon, removed with a cold snare. Resected and retrieved. - One 3 mm polyp in the sigmoid colon, removed with a cold snare. Resected and retrieved. - Non-bleeding internal hemorrhoids. Recommendation: - Discharge patient to home. - Patient has a contact number available for emergencies. The signsand symptoms of potential delayed complications were discussed with the patient. Return to normal activities tomorrow. Written discharge instructions were provided to the patient. - High fiber diet. - Continue present medications. - Await pathology results. - Repeat colonoscopy in 5-10 years for surveillance based onpathology results. Moderate Sedation: Moderate (conscious) sedation was personally administered by an anesthesia professional. The following parameters were monitored:oxygen saturation, heart rate, blood pressure, and response to care. Cooper Adams MD 04/15/2022 2:34:58 PM This report has been signed electronically. Note Initiated On: 04/15/2022 12:02 PM Cooper Adams DO PROCEDURE ORD * CT CHEST WO (03/29/2022 9:11 AM CDT) Anatomical Region Laterality Modality CHEST, THORAX, HEART Computed To mography 03/29/2022 9:32 AM CDT Impressions 03/29/2022 9:32 [...] note that all CT scans at this facility use dose modulation, iterative reconstruction, and/or weight-based dosing when appropriate to reduce radiation dose to as low as reasonably achievable. Dictated by Shellie Pringle MD @ 03/29/2022 9:32:47 AM (Electronically Signed) Narrative 03/29/2022 9:32 AM CDT For Patients: ??As a result of the Century Cures Act, medical imaging exams and procedure reports are released immediately into your electronic medical record. ??You may view this report [...] thoracic aorta. Mediastinum and kari: Pretracheal and subcarinal lymph nodes are normal in size. No sign of mass or significant adenopathy. Left thyroid nodule similar to the previous. Lungs: There is new right middle lobe bronchiectasis and linear scarring extending from the right hilum to the right anterior chest wall. The previously noted nodule in the anterior right upper lobe adjacent to the minor fissure is not visible. Remaining right and left lung higuera are clear. Pleura and pericardium: No effusions. Chest wall and axilla: No mass or adenopathy. Bones: Degenerative spine. Probable small bone island, T11 vertebral body. No other lytic or osteoblastic skeletal lesions. Upper abdomen: Left adrenal enlargement similar to the previous. Otherwise unremarkable. Procedure Note Mckinley Pringle MD - 03/29/2022 For Patients: As a result of the Century Cures Act, medical imagingexams and procedure reports are released immediately into your electronicmedical record. You may view this report before your referring provider.If you have questions, please contact your health care provider. INDICATION: Right pulmonary nodule. TECHNIQUE: CT chest without contrast. COMPARISON: CT chest with contrast 08/06/2021 FINDINGS: Cardiovascular structures: Heart size is normal. Thoracic aorta and mainpulmonary artery are normal in caliber. Atherosclerotic calcificationcoronary arteries and thoracic aorta. Mediastinum and kari: Pretracheal and subcarinal lymph nodes are normal insize. No sign of mass or significant adenopathy. Left thyroid nodulesimilar to the previous. Lungs: There is new right middle lobe bronchiectasis and linear scarringextending from the right hilum to the right anterior chest wall. Thepreviously noted nodule in the anterior right upper lobe adjacent to theminor fissure is not visible. Remaining right and left lung higuera areclear. Pleura and pericardium: No effusions. Chest wall and axilla: No mass or adenopathy. Bones: Degenerative spine. Probable small bone island, T11 vertebral body.No other lytic or osteoblastic skeletal lesions. Upper abdomen: Left adrenal enlargement similar to the previous. Otherwiseunremarkable. IMPRESSION: 1. New bronchiectasis and linear scarring in the right middle lobe. Smalllymph nodes in the mid mediastinum are likely reactive. Previously notedright upper lobe pulmonary nodule is no longer visible. 2. No additional pulmonary pathology. 3. Chronic atherosclerotic disease, left thyroid nodules and left adrenalenlargement similar to the previous. Please note that all CT scans at this facility use dose modulation,iterative reconstruction, and/or weight-based dosing when appropriate toreduce radiation dose to as low as reasonably achievable. Dictated by Shellie Pringle MD @ 03/29/2022 9:32:47 AM (Electronically Signed) Anamika Amin COMMISSARY ASSISTANT CT * (ABNORMAL) LIPID PANEL W REFLEX MEASURED LDL (03/11/2022 3:22 PM CDT) CHOLESTEROL,TOTAL 167 100 - 199 mg/dL 03/11/2022 4:04 PM CDT [facility] TRIGLYCERIDES 234(H) <150 mg/dL 03/11/2022 4:04 PM CDT [facility] HDL CHOLESTEROL 36(L) >40 mg/dL 4:04 PM CDT [facility] NON-HDL CHOLESTEROL 131 <145 mg/dl 03/11/2022 4:04 PM T [facility] CHOL/HDL RATIO 4.64(H) <4.50 03/11/2022 4:04 PM CDT [facility] LDL CHOLESTEROL 84 <=130 mg/dL 03/11/2022 4:04 PM T [facility] VLDL CHOLESTEROL 47(H) <=30 mg/dL 03/11/2022 4:04 PM CDT [facility] PROVIDER ORDERED STATUS RANDOM 03/11/2022 4:04 PM T [facility] Blood BLOOD SPECIMEN / Unknown Venipuncture / Unknown 03/11/2022 3:22 PM CDT 03/11/2022 3:25 PM CDT Anamika Amin COMMISSARY ASSISTANT CHEMISTRY Performing Organization Address [facility] Co de Phone Number [facility] [address] [place] [id number] * PHOTOGRAPHY ASSISTANT THIN PREP PAP SCREEN IMAGED [[id number]] (11/26/2021 8:49 AM CDT) Case Report Gynecologic Cytology Report ? Case: [id number] ? Authorizing Provider: ??Anamika Amin NP ?Collected: ? 11/26/2021 0849 ? Ordering Location: ? [facility] ?Received: ?11/26/2021 0849 ? Clinic ? First Screen: ?Todd Lovelace ? Specimen: ?PHOTOGRAPHY ASSISTANT ThinPrep Vial Screening, Cervical ? 12/12/2021 3:40 PM CDT [facility] INTERPRETATION/ RESULT NEGATIVE FOR INTRAEPITHELIAL LESION OR MALIGNANCY (NIL) (none) 12/12/2021 3:40 PM CDT [facility] [email or web address] ENTRAL LABORATORY IMEN ADEQUACY Satisfactory for evaluation No endocervical component seen 12/12/2021 3:40 PM CDT [facility]TR[facility] LAB[facility] HPV REQUEST HPV if ASCUS 12/12/2021 3:40 PM CDT [facility] [employer] [facility] ENTRAL LAB[facility]AT[facility] Date of LMP 09/1112/12/2021 3:40 PM CDT [facility] EN[facility] Last Pap Date uncertain 12/12/2021 3:40 PM CDT [facility]- ENTRAL LABORATORY Last Pap Result First Pap/Unknown 3:40 PM CDT [facility] Abnormal Pap or Pelzer Bx in last 5 years No 12/12/2021 3:40 PM CDT [facility] Menstrual Status Perimenopausal 12/12/2021 3:40 PM CDT [facility]AL [facility] Pelzer Bx Done Today No 12/12/2021 3:40 PM CDT [facility] Additional Information None given 12/12/2021 3:40 PM CDT [facility] Comment: Cytology is screened at [facility] - [address], [place] [address] [facility] - [address], [place] [address] and [facility] - [address] [place] [address] Interpreted at [facility] - [address], [place] [address] Automated Review Successful 12/12/2021 3:40 PM CDT [facility] Comment:Specimen processed s uccessfully by automated forest ecologist device, ThinPrep Imaging System, [employer] Note The pap test is a screening technique, not a diagnostic procedure. It is used primarily to screen for squamous cancers and precursor lesions. Published studies have shown that it is subject to both false negative and false positive results. The pap test should not be used as the sole means to diagnose or exclude pre-malignant and malignant lesions. 12/12/2021 3:40 PM CDT [facility] Other (Cervical) Non-Blood / Unknown 11/26/2021 8:49 AM CDT 11/26/2021 8:49 AM CDT Anamika Amin NP PATHOLOGY/CYTOLOGY [facility] [address] [place] [address], [place] from Last 3 Months or Most Recently Relevant to Health Maintenance Advance Directives * Full Code (Latest Code Status on File) Date Activated Date Inactivated Comments 04/15/2022 10:48 AM 04/15/2022 3:28 PM Question Answer Comments Code Status Discussion: Discussed * Full Code Date Activated Date Inactivated Comments 08/06/2021 8:55 PM 08/08/2021 8:46 PM Question Answer Comments Code Status Discussion: Reviewed Preferences Care Teams Metal Alloy Scientist Relationship Specialty Start Date End Date Anamika Amin NP [address] [place] [id number] PCP - General Family Practice 07/19/16
== END 2024-01-13 11:37 | disposition home or self-care (01) ==
PROVIDERS: PCP Nurse Practitioner Family; Visit Provider Family Medicine
DX: M54.16 Radiculopathy, lumbar region (principal); M51.26 Other intervertebral disc displacement, lumbar region
CPT/HCPCS: 64483; J1100; Q9966

== ENCOUNTER 2024-06-11 09:46 | Outpatient (CLI) | payer MEDICAID, SELFPAY | END 2024-06-11 09:47 | disposition home or self-care (01) | PROVIDERS: PCP Nurse Practitioner Family; Visit Provider Family Medicine | DX: M54.16 Radiculopathy, lumbar region (principal) | CPT/HCPCS: 64483; J1100; Q9966 ==